=== PATIENT | male | born 1975 | race Two or more races ===

== ENCOUNTER 2022-01-16 19:41 | Inpatient (IN) | payer BC, SELFPAY ==
[2022-01-16] VITALS (11 sets, daily range): BP systolic 146–215; BP diastolic 89–117; PULSE 69–83; RESP 12–21; TEMP 36.2–37.1; O2SAT 99–100; BMI 27.6
--- NOTE | ~2022-01-16 | MR_ITS ---
MRI OF THE BRAIN WITHOUT IV CONTRAST INDICATION: ? STROKE POST TPA. Previous CT studies describes left-sided weakness. COMPARISON: CTA head and neck and head CT January 16, 2022 TECHNIQUE: Multiplanar multisequence MR imaging of the brain was obtained without IV contrast. FINDINGS: There is an acute infarct extending from the right velasquez radiata into the posterior right putamen. No mass effect and no hemorrhagic transformation. There is background moderate chronic microangiopathy. There is no hydrocephalus, extra-axial surface collection, or herniation. The major flow voids at the skull base are preserved. There is no intracranial hemorrhage on the gradient recalled echo acquisition. The midline structures are normal. The cerebellar tonsils are normally positioned. The cerebellum and brainstem are normal. The craniocervical junction is normal. Osseous marrow signal intensity is homogenous. The visualized soft tissues are unremarkable. MR/MR head/brain wo con IMPRESSION: - There is an acute infarct extending from the right velasquez radiata into the posterior right putamen. No mass effect and no hemorrhagic transformation. - There is background moderate chronic microangiopathy.
--- NOTE | ~2022-01-16 | CT_ITS ---
EXAMINATION: CT HEAD WITHOUT CONTRAST (STROKE PROTOCOL) CLINICAL INFORMATION: Stroke protocol. Left-sided weakness. COMPARISON: None TECHNIQUE: Contiguous axial imaging was performed from the skull base to vertex without intravenous administration of contrast. This CT examination was performed using dose optimization techniques as appropriate, variously including the following: *Automated exposure control *Adjustment of mA and/or kV according to patient size (this includes techniques or standardized protocols for targeted exams where dose is matched to indication/reason for exam; i.e. extremities or head) *Use of iterative reconstruction technique DLP: 727 mGy-cm FINDINGS: There is no intracranial hemorrhage, hematoma, or extra-axial fluid collection. Subtle hypodensity is seen in the left postcentral gyrus on axial image 21/3. However patient has a left-sided weakness and likely not related to this abnormality. The ventricles are normal in size. There is no hydrocephalus, edema, or mass effect. The child-white matter differentiation appears symmetric. There is no acute infarct or mass lesion. The calvarium appears intact. There is no pneumocephalus or orbital emphysema. The visualized sinuses and middle ears and mastoid air cells show no significant mucosal thickening. There are no air-fluid levels. CT/CT head for stroke IMPRESSION: No acute intracranial bleed or infarct. Nonspecific hypodensity in the left postcentral gyrus question artifact or ischemia. However patient has left-sided weakness and symptoms. This critical result was discussed with Dr. Sky at 8:07 PM. It was ascertained that the content and urgency of the report was understood at the time of direct communication.
--- NOTE | ~2022-01-16 | XR_ITS ---
EXAMINATION: XR CHEST CLINICAL INFORMATION: CVA COMPARISON: None TECHNIQUE: Frontal view of the chest was obtained. FINDINGS: The lungs are well expanded. There is no focal consolidation, edema, or effusion. No pneumothorax. The cardiomediastinal silhouette is within normal limits. No acute osseous abnormality. XR/XR chest 1V IMPRESSION: Clear lungs.
--- NOTE | ~2022-01-16 | CT_ITS ---
EXAMINATION: CTA OF THE HEAD AND NECK CLINICAL INFORMATION: Acute left-sided weakness. COMPARISON: Head CT from 01/16/2022. TECHNIQUE: Test bolus sequences followed by intravenous administration 70 mL of Omnipaque 350. Helical imaging was performed in the axial plane from the mediastinum to the skull vertex. Delayed postcontrast imaging of the head was also performed. The data was processed at the neurodiagnostic technologist's workstation for generation of MIP sequences. Three-dimensional volume rendered reformatted images were also generated at an offline 3-D workstation. Stenoses are assessed in accordance with NASCET criteria unless otherwise indicated. This CT examination was performed using dose optimization techniques as appropriate, variously including the following: *Automated exposure control *Adjustment of mA and/or kV according to patient size (this includes techniques or standardized protocols for targeted exams where dose is matched to indication/reason for exam; i.e. extremities or head) *Use of iterative reconstruction technique DLP: 1652 mGy-cm. FINDINGS: CTA neck: The imaged aortic arch and origins of the great vessels are patent. The common carotid arteries are patent with mild areas of atheromatous disease. The carotid bifurcations are normal. The cervical internal carotid arteries are relatively normal in caliber. The vertebral arteries opacify normally. Mild luminal irregularities noted in the V2 segments of the vertebral arteries. Left hilar and left pericarinal calcified adenopathy noted which may be due to prior granulomatous disease. The imaged portions of the lungs are clear. There is a small nodule versus cyst in the right thyroid lobe. There is mild asymmetric prominence along the tongue base on the left side and of the left oropharyngeal wall. The left nasopharyngeal soft tissues are also mildly asymmetric as compared to the right side. The oral cavity appears normal. The laryngeal structures are unremarkable. No pathologically enlarged cervical lymph nodes are visible. The parotid and submandibular glands appear normal. No acute osseous abnormality is seen. CTA head: There are mild stenoses in the intradural left vertebral artery. There are multifocal mild to moderate stenoses in the right vertebral artery; a focal severe stenosis is also visible distal to the PICA origin. A moderate stenosis is evident in the proximal basilar artery. There are mild stenoses elsewhere throughout the basilar artery. There are moderate to severe stenoses in both posterior cerebral arteries, proximally on the right side and more distally on the left side. There is a moderate stenosis in the supraclinoid left internal carotid artery. The right ICA is patent with mild stenoses. There are multifocal mild and moderate stenoses in the MCA and INDIGO vasculature, more so on the left side. The venous sinuses opacify normally. No abnormal enhancement intracranially. CT/CT angio head neck stroke IMPRESSION: Mild atheromatous disease in the cervical vasculature without significant stenosis or vessel occlusion. Mild to moderate stenoses in the intracranial right vertebral artery with a focal severe stenosis distal to the PICA origin. Moderate stenosis in the proximal basilar artery. Moderate to severe stenoses in the posterior cerebral arteries, particularly at the P1/P2 junction on the right side. Moderate stenosis in the supraclinoid left internal carotid artery. Multifocal mild to moderate stenoses in the MCA and INDIGO vasculature. Mild asymmetric soft tissue prominence along the tongue base on the left side and of the left pharyngeal wall; correlate with direct visual inspection in order to exclude an underlying lesion. No cervical adenopathy. Imaging findings reported to Dr. Gibbs at 9:06 PM on 01/16/2022.
--- NOTE | 2022-01-16 19:50 | ECG_ITS ---
Test Reason : stroke Blood Pressure : / mmHG Vent. Rate : 076 BPM Atrial Rate : 076 BPM P-R Int : 162 ms QRS Dur : 090 ms QT Int : 404 ms P-R-T Axes : 052 086 072 degrees QTc Int : 454 ms Normal sinus rhythm Normal ECG No previous ECGs available Referred By: Jose Daniel Leonard Electronically Signed By:RHETT UP MD
[2022-01-16 20:00] LABS: MANUAL DIFF FLAG NO
[2022-01-16 20:05] LABS: Stroke Lab Use COMPLETE
[2022-01-16 20:08] LABS: Prothrombin Time 11.8 SEC (9.9-13.0)
[2022-01-16 20:10] LABS: Basophils Percent Auto 0.4 % (0-2); Eosinophils Absolute Auto 0.2 X10*3/uL (0.0-0.4); Eosinophils Percent Auto 2.1 % (0-4); Hematocrit 40.3 % (42.0-52.0); Hemoglobin 13.9 g/dl (14.0-18.0); Imm Gran Abs Auto 0.03 X10*3/uL (0.00-0.03); Imm Gran Pct Auto 0.4 % (0.0-0.4); Lymphocytes Absolute Auto 2.2 X10*3/uL (1.2-4.9); Lymphocytes Percent Auto 28.2 % (20-40); Mean Corpuscular HGB Conc 34.5 g/dl (31.0-36.0); Mean Corpuscular Hemoglobin 29.3 pg (27.0-33.0); Mean Platelet Volume 10.4 fL (9.4-12.4); Monocytes Absolute Auto 0.6 X10*3/uL (0.1-1.2); Monocytes Percent Auto 7.6 % (2-11); Neutrophils Absolute Auto 4.7 x10*3/uL (2.0-8.3); Neutrophils Percent Auto 61.3 % (45-73); Platelet Count 289 X10*3/uL (160-400); Red Blood Count 4.74 X10*6/uL (4.60-5.80); Red Cell Distribution Width 13.2 % (11.0-16.0); White Blood Count 7.6 X10*3/uL (4.8-10.8)
[2022-01-16] MEDS: Labetalol HCL 100 MG/20 ML VIAL 20 MG IVPUSH ×2 (20:12→20:26)
--- NOTE | 2022-01-16 20:13 | ED_ITS ---
HPI - Neuro Symptoms/Deficit General Chief Complaint: Stroke Stated Complaint: R side droopy, unable to speak Time Seen by Provider: 01/16/22 19:48 Source: patient Mode of arrival: ambulatory Limitations: no limitations History of Present Illness HPI Narrative: Patient history of hypertension cocaine use not taking any medication for hypertension lasting cocaine was 48 hours ago around 18:00 while at work patient noticed left arm numbness unsteady gait slurred speech and left-sided facial droop no headache on arrival patient's blood pressure was 206/112 no nausea no vomiting no chest pain or palpitations no history of similar episode in the past no vision loss Related Data Home Medications Medication Instructions Recorded Confirmed No Known Home Meds 01/16/22 01/16/22 Allergies Allergy/AdvReac Type Severity Reaction Status Date / Time No Known Allergies Allergy Verified 01/16/22 19:59 Review of Systems Review of Systems: Yes all other systems are reviewed and are negative [facility] Social History Social History Patient Tobacco Use Status: Current someday Tobacco user Use of substances other than those prescribed or required for medical reasons: Yes Substance Use Type: Crack/Cocaine Substance Use Frequency: Daily Advance Directives: No Advance Directives Information Provided: No Physical Exam Vital Signs: Vital Signs: Last Vital Signs Temp 98.7 F 01/16/22 23:27 Pulse 66 01/17/22 00:00 Resp 21 H 01/17/22 00:00 BP 169/100 H 01/17/22 00:00 Pulse Ox 99 01/16/22 23:27 BMI result Body Mass Index 27.6 Appearance: Alert. Oriented X3. No acute distress. Eyes: PERRLA, No Nystagmus ENT: Pharynx normal. Oral Mucosa moist Neck: Normal inspection. Neck supple. CVS: Normal heart rate and rhythm. Pulses normal. Respiratory: No respiratory distress. Equal air entry bilateral, no wheezing/rales/rhonchi Abdomen: Soft and nontender. Bowel sounds are present, no mass palpable, no CVA tenderness Skin: Skin warm and dry. Normal skin color. Normal skin turgor. Extremities: No lower extremity edema. No calf tenderness Neuro: Oriented X 3.-4/5 strength in left upper extremity and left lower extremities left facial droop + dysarthria+ No sensory deficit.No cerebellar signs , Course Reevaluation(s) Reevaluation #1: Patient is status post labetalol and CT scan negative for any acute bleed blood pressure still elevated to 206/[address] Ware bring blood pressure down and give tPA if NIHSS score is above 4 Time: 20:06 Reevaluation #2: Patient status post 20 mg of labetalol IV blood pressure still elevated to 197/101 patient said he used cocaine 2 days ago none today will give another dos e of labetalol 20 mg patient does have history of hypertension and not on any medications Time: 20:23 Reevaluation #3: bp 168/86 ok for TPA pt still with same deficit Time: 20:26 MDM - Neuro Symptoms/Deficit MDM Narrative Medical decision making narrative: 20:30 Patient with history of hypertension untreated history of cocaine use last use was 48 hours ago came to the ER for acute left-sided weakness started at 18:00. Patient blood pressure was elevated on arrival was given labetalol [address] scan head was negative case discussed Dr. Ware advised to give tPA when SBP< 185 and NIHHS score more than 4, patient stayed with same weakness blood pressure improved TPA started 21;30 patient is status post tPA slight speech improvement still has left arm and left leg weakness. Blood pressure 161/92 admit to ICU Lab Data Attestation: I reviewed the patient's lab results. Result diagrams: 01/16/22 19:50 01/16/22 19:50 Labs: Lab Results 01/16/22 01/16/22 01/16/22 Range/Units 19:50 19:50 19:50 WBC 7.6 (4.8-10.8) X10*3/uL RBC 4.74 (4.60-5.80) X10*6/uL Hgb 13.9 L (14.0-18.0) g/dl Hct 40.3 L (42.0-52.0) % MCV 85.0 (80.0-98.0) fL MCH 29.3 (27.0-33.0) pg MCHC 34.5 (31.0-36.0) g/dl RDW 13.2 (11.0-16.0) % Plt Count 289 (160-400) X10*3/uL MPV 10.4 (9.4-12.4) fL Immature Gran % (Auto) 0.4 (0.0-0.4) % Neut % (Auto) 61.3 (45-73) % Lymph % (Auto) 28.2 (20-40) % Rusk % (Auto) 7.6 (2-11) % Eos % (Auto) 2.1 (0-4) % Baso % (Auto) 0.4 (0-2) % Lymph # (Auto) 2.2 (1.2-4.9) X10*3/uL Rusk # (Auto) 0.6 (0.1-1.2) X10*3/uL Eos # (Auto) 0.2 (0.0-0.4) X10*3/uL Baso # (Auto) 0.0 (0.0-0.2) X10*3/uL Abs Immat Gran (auto) 0.03 (0.00-0.03) X10*3/uL Absolute Neuts (auto) 4.7 (2.0-8.3) x10*3/uL Absolute Nucleated RBC 0.000 (0.0-0.012) X10*3/uL Nucleated RBC % (auto) 0.0 (0.0-0.2) /100WBC PT 11.8 (9.9-13.0) SEC INR 1.0 (0.9-1.1) Sodium 133 L (135-145) mmol/L Potassium 4.2 (3.3-5.1) mmol/L Chloride 98 (96-108) mmol/L Carbon Dioxide 27 (22-29) mmol/L Anion Gap 12 (12-20) BUN 9 (9-16) mg/dL Creatinine 1.14 (0.5-1.4) mg/dL Estim Creat Clear Calc 84.4 Estimated GFR > 60 POC Glucose (60-115) mg/dL Random Glucose 320 H (60-115) mg/dL Calcium 9.6 (8.4-10.2) mg/dL Troponin I High Sens (<3.5-35.0) ng/L COVID-19 (JON) (Negative) COVID-19 Clin Com 01/16/22 01/16/22 01/16/22 Range/Units 19:50 19:50 20:13 WBC (4.8-10.8) X10*3/uL RBC (4.60-5.80) X10*6/uL Hgb (14.0-18.0) g/dl Hct (42.0-52.0) % MCV (80.0-98.0) fL MCH (27.0-33.0) pg MCHC (31.0-36.0) g/dl RDW (11.0-16.0) % Plt Count (160-400) X10*3/uL MPV (9.4-12.4) fL Immature Gran % (Auto) (0.0-0.4) % Neut % (Auto) (45-73) % Lymph % (Auto) (20-40) % Rusk % (Auto) (2-11) % Eos % (Auto) (0-4) % Baso % (Auto) (0-2) % Lymph # (Auto) (1.2-4.9) X10*3/uL Rusk # (Auto) (0.1-1.2) X10*3/uL Eos # (Auto) (0.0-0.4) X10*3/uL Baso # (Auto) (0.0-0.2) X10*3/uL Abs Immat Gran (auto) (0.00-0.03) X10*3/uL Absolute Neuts (auto) (2.0-8.3) x10*3/uL Absolute Nucleated RBC (0.0-0.012) X10*3/uL Nucleated RBC % (auto) (0.0-0.2) /100WBC PT (9.9-13.0) SEC INR (0.9-1.1) Sodium (135-145) mmol/L Potassium (3.3-5.1) mmol/L Chloride (96-108) mmol/L Carbon Dioxide (22-29) mmol/L Anion Gap (12-20) BUN (9-16) mg/dL Creatinine (0.5-1.4) mg/dL Estim Creat Clear Calc Estimated GFR POC Glucose 292 H (60-115) mg/dL Random Glucose (60-115) mg/dL Calcium (8.4-10.2) mg/dL Troponin I High Sens 4.6 (<3.5-35.0) ng/L COVID-19 (JON) Negative (Negative) COVID-19 Clin Com See Note ECG Data Attestation: I personally reviewed and interpreted this ECG as follows: Interpretation: Normal sinus rhythm heart rate 76 beats per minute normal intervals normal axis no acute ST-T changes no acute ischemia NIH Stroke Scale Internal: Initial- Upon Arrival Time: 19:50 Level of Consciousness: Alert Level of Consciousness Questions: Answers both questions correctly Level of Consciousness Commands: Performs both tasks correctly Best Gaze: Normal Visual: No visual loss Facial Palsy: Partial paralysis Motor Arm (Right): No drift Motor Arm (Left): Drift Motor Leg (Right): No drift Motor Leg (Left): Drift Limb Ataxia: Absent Sensory: Normal Best Language: No aphasia Dysarthia: Mild to moderate dysarthria Extinction and Inattention: No abnormality Score: 5 Critical Care Time Critical Care Time Critical Care Time: Yes Total Critical Care Time: 55 Attestation: I spent 55 minutes of critical care, with interventions, assessments, speaking to patient, consultants, and family. Discharge Plan Discharge Clinical Impression: Cerebrovascular accident, Hypertension, Diabetes mellitus Patient Disposition: Admitted As Inpatient Interventions: Admission Worksheet (ED) Last Done: 01/17/22 00:16 Discharge Date/Time: 01/17/22 00:17
[2022-01-16 20:17] LABS: Anion Gap 12 (12-20); Blood Urea Nitrogen 9 mg/dL (9-16); Calcium 9.6 mg/dL (8.4-10.2); Carbon Dioxide 27 mmol/L (22-29); Chloride 98 mmol/L (96-108); Creatinine Clr Calc Pharmacy 84.4; Estimated Glomerular Filt Rate > 60; Glucose Random 320 mg/dL (60-115); Potassium 4.2 mmol/L (3.3-5.1); Sodium 133 mmol/L (135-145)
[2022-01-16 20:17] LABS: Glucose, Whole Blood 292 mg/dL (60-115)
[2022-01-16 20:22] LABS: Troponin-I High Sensitivity 4.6 ng/L (<3.5-35.0)
[2022-01-16] MEDS: iohexoL 350 MG/ML 100 ML INFUS..BTL IV (20:27)
--- NOTE | 2022-01-16 20:38 | PC.NURSE ---
This RN checked PT BP prior to CT scan, found to be 215/117, provider ordered 20 mg og labetolol which was given. Prior to CTA PT's BP was still elevated at 187/101. PT return from CT and received another 20 mg of labetolol per provider's order. As alteplase was being prepared a third BP was obtained (167/99) and then PT received med. From Alteplase solution vile, 19 mL was wasted, PT received 8.1 mL bolus over one minute, and then one hour infusion of 72.9 mL was started. PT is currently sitting comfortably in bed, denies any pain, but still complaining of difficulty with speech.
[2022-01-16 21:07] LABS: COVID-19 Test Negative (Negative); IDNOW Serial# 16C4AD1C
--- NOTE | 2022-01-16 21:18 | PC.NURSE ---
Alteplase infusion still has 20 minutes remaining. PT reported that he is feeling a lot better and speech has improved .
--- NOTE | 2022-01-16 21:36 | PC.NURSE ---
Alteplase infusion completed. Provider informed. PT is resting and in no apparent distress at this time.
--- NOTE | 2022-01-16 21:56 | PM.CCHP ---
History of Present Illness Date of Service: 01/17/22 Attending physician on admission: Mayo Arreguin Chief Complaint: Ischemic Stroke post tPA HPI: ?38-year-old gentleman with history of hypertension not on meds; presented to the ER reporting his R face was droopy and was unable to speak. It is known that he has not taken his blood pressure medications and had been using cocaine, last being 2 days ago. In the ER the patient had right facial droop and dysarthria. Reportedly he had left arm and left leg weakness 4/5 in comparison to 5/5 on the right. NIH score of [address] showing Nonspecific hypodensity in the left postcentral gyrus question artifact or ischemia. However patient has left-sided weakness and symptoms. ?At time of arrival the patient's blood pressure was quite elevated at its highest 215/117, patient was given labetalol 20 mg IV. ?Neurology was consulted and decision to administer tPA was made.? Patient receive tPA and the symptoms improved dramatically within a couple hours. currently he is able to speak in full sentences, feels significantly better than before and does not feel like his right face is twisted anymore , he feels no weakness of arms or legs. Patient denies vissual changes, headache, Chest pain, palpitations, shortness of breath, arm or jaw pain, arm or jaw weakness, abdominal pain, nausea, vomiting, diarrhea, leg edema, urinary symptoms. ROS:? As above otherwise negative. Past Medical History:? As above Past Surgical History: none Family history:? Noncontributory Social History:? Lives home, uses Cocaine, no Etoh. Denies tobacco CODE STATUS: FULL CODE Allergies: NKDA Home Medications: See Med Rec PHYSICAL EXAM: VS: 146/89, heart rate 66, respirations 21, O2 sat 99% room air, temperature 98.7 degrees. General:? Alert oriented x3 no acute distress. Speaking slowly but in full sentences, there is no dysarthria. Skin:? Intact, no lesions, edema, erythema, clubbing or cyanosis.? No ulcers. HEENT:? Head is normocephalic, atraumatic, pupils equal round reactive to light accommodation bilaterally.? Extraocular movements appear intact.? Buccal mucosa is moist, tongue protrudes midline with slight tip deviation towards the left.? There is no facial droop. ?Neck is supple without lymphadenopathy. Cardiac:? Clear S1-S2, no murmurs rubs or gallops. Pulmonary:? Clear to auscultation, no wheezes, rales or rhonchi. Abdomen:? Protuberant, positive bowel sounds in all 4 quadrants.? Soft, nontender, no rebound or guarding.? Musculoskeletal:? Moving all 4 extremities upon request a major joints, there is no crepitus or tenderness.? The strength is 5/5 bilaterally and throughout all 4 extremities.? There is no leg edema , no calf tenderness , no leg asymmetry.? Gait not assessed at this point. Neurologic:? As above, cranial nerves 2-12 are grossly intact.? No focal deficits noted. ?Alternating movements are intact with [id number] and [id number] bilaterally. Vascular:? 2+ pulses upper and lower extremities distally. SIGNIFICANT LABORATORY DATA: ?As above REVIEW OF IMAGES: CXR Clear Lungs HEAD CT IMPRESSION: No acute intracranial bleed or infarct. ? Nonspecific hypodensity in the left postcentral gyrus question artifact or ischemia. However patient has left-sided weakness and symptoms. ? This critical result was discussed with Dr. Sky? at 8:07 PM. It was ascertained that the content and urgency of the report was understood at the time of direct communication. HEAC and NECK CTA IMPRESSION: ? Mild atheromatous disease in the cervical vasculature without significant stenosis or vessel occlusion. ? Mild to moderate stenoses in the intracranial right vertebral artery with a focal severe stenosis distal to the PICA origin. Moderate stenosis in the proximal basilar artery. ? Moderate to severe stenoses in the posterior cerebral arteries, particularly at the P1/P2 junction on the right side. ? Moderate stenosis in the supraclinoid left internal carotid artery. ? Multifocal mild to moderate stenoses in the MCA and INDIGO vasculature. ? Mild asymmetric soft tissue prominence along the tongue base on the left side and of the left pharyngeal wall; correlate with direct visual inspection in order to exclude an underlying lesion. No cervical adenopathy. ? EKG REVIEW: ?Normal sinus rhythm ventricular rate 76 beats per minute.? No ST elevations or depressions.? QTC 454.? No comparison available. ASSESSMENT AND PLAN: 1. Acute Ischemic Infarct 2. HTN Emergency ? encephalopathy 3. Suspected New onset Diabetes 4. Hypovolemic Hyponatremia 5. Cocaine Abuse 6. Medical Non Compliance Patient will be admitted to ICU for post tPA protocol and management, will keep a close eye on his blood pressure, no aspirin or related products for 24 hours, swallow eval, lipid profile in the morning and maximize statin, will order an echo and MRI of the head.? Repeat lab work in the morning, order hemoglobin A1c level, likely will need to be started on antihypertensive agents, and but no for now to avoid hypoperfusion.? Who new speech and occupational therapy evaluation although I do not suspect that he will have any deficits anymore for his exam is almost completely normal at this point. GI PROPHYLAXIS: IV PPI DVT PROPHYLAXIS: Pneumatic Stocks ? Critical care time used for critical evaluation of this patient, diagnosis, treatment and coordination of care, review her records and documentation TOTAL CRITICAL CARE TIME 90 MIN . Patient's care was discussed in detail with Dr. Arreguin.? He is aware of all the above as well as the plan of care for this patient. [facility] Social History Social History Household Members: Spouse Housing: Homeless Do you presently have visiting nurse or other home services: No Patient Tobacco Use Status: Former Tobacco user Tobacco use type: Cigarette Smoked in Last 30 Days: Yes Patient Interested in Nicotine Replacement: No Patient Given Instructions on How to Stop Smoking: No Second Hand Smoke Exposure: No Use of substances other than those prescribed or required for medical reasons: Yes Substance Use Type: Crack/Cocaine Substance Use Frequency: Occasionally Last Used Substance: Days (ago) Currently Displaying Signs/Symptoms of Drug Intoxication Withdrawal: No Any prior treatment program specific to substance use: No Have you been hit, kicked, punched, or otherwise hurt by someone within the past year? If so, by whom?: No Do you feel safe in your current relationship?: Yes Is there a partner from a previous relationship who is making you feel unsafe now?: No Are you made to feel afraid or neglected: No Advance Directives: No Advance Directives Information Provided: No Advance Directives on File: No Do you have thoughts of harming others: None Do you have a plan to hurt others: No Plan Recently lost weight without trying: Yes How much weight loss: 2-13 pounds Eating poorly because of decreased appetite: No Nutrition screen score: 3 Nutrition Risks: No Nutritional Risk Poor oral hygiene: No service: No Current occupational status: employed Meds Allergies Allergy/AdvReac Type Severity Reaction Status Date / Time No Known Allergies Allergy Verified 01/16/22 19:59 Active Medications: Current Medications Dextrose (Dextrose 50 % 25 Gm/50 Ml Syringe) 25 gm IVPUSH Q15M PRN; Protocol PRN Reason: per Hypoglycemia Standing Ord. Glucose (Glucose Gel 15 Gm Gel..Gram.) 15 gm PO Q15M PRN; Protocol PRN Reason: per Hypoglycemia Standing Ord. Insulin Human Lispro (Insulin Lispro 100 Unit/Ml 3 Ml Vial) 0 unit SUBCUT QID [facility]; Protocol Pantoprazole Sodium (Pantoprazole Sodium 40 Mg/10 Ml Vial) 40 mg IVPUSH ONCE ONE Stop: 01/16/22 21:53 Sodium Chloride (0.9 % Sodium Chloride Flush 3 Ml Syringe) 3 [facility] Home Medications Medication Instructions Recorded Confirmed Last Taken Type No Known Home Meds 01/17/22 01/17/22 Unknown History Physical Exam Vital Signs: Vital Signs: Last Vital Signs Temp 97.1 F 01/16/22 19:57 Pulse 72 01/16/22 21:53 Resp 18 01/16/22 21:53 BP 152/110 H 01/16/22 21:53 Pulse Ox 100 01/16/22 21:53 BMI result Body Mass Index 27.6 Results Labs CBC and Chem 7: 01/17/22 05:04 01/17/22 05:04 Labs: Laboratory Results - last 24 hr 01/16/22 01/16/22 01/16/22 19:50 19:50 19:50 MCV 85.0 MCH 29.3 MCHC 34.5 RDW 13.2 Plt Count 289 MPV 10.4 Immature Gran % (Auto) 0.4 Neut % (Auto) 61.3 Lymph % (Auto) 28.2 Harlan % (Auto) 7.6 Eos % (Auto) 2.1 Baso % (Auto) 0.4 Lymph # (Auto) 2.2 Harlan # (Auto) 0.6 Eos # (Auto) 0.2 Baso # (Auto) 0.0 Abs Immat Gran (auto) 0.03 Absolute Neuts (auto) 4.7 Absolute Nucleated RBC 0.000 Nucleated RBC % (auto) 0.0 PT 11.8 INR 1.0 Anion Gap 12 Estim Creat Clear Calc 84.4 Estimated GFR > 60 POC Glucose Random Glucose 320 H Calcium 9.6 Troponin I High Sens COVID-19 (JON) COVID-19 Clin Com 01/16/22 01/16/22 01/16/22 19:50 19:50 20:13 MCV MCH MCHC RDW Plt Count MPV Immature Gran % (Auto) Neut % (Auto) Lymph % (Auto) Harlan % (Auto) Eos % (Auto) Baso % (Auto) Lymph # (Auto) Harlan # (Auto) Eos # (Auto) Baso # (Auto) Abs Immat Gran (auto) Absolute Neuts (auto) Absolute Nucleated RBC Nucleated RBC % (auto) PT INR Anion Gap Estim Creat Clear Calc Estimated GFR POC Glucose 292 H Random Glucose Calcium Troponin I High Sens 4.6 COVID-19 (JON) Negative COVID-19 Clin Com See Note Imaging Radiologist's Impressions: Impressions Head CT 01/16/22 19:58 IMPRESSION: No acute intracranial bleed or infarct. Nonspecific hypodensity in the left postcentral gyrus question artifact or ischemia. However patient has left-sided weakness and symptoms. This critical result was discussed with Dr. Sky at 8:07 PM. It was ascertained that the content and urgency of the report was understood at the time of direct communication. Head/Neck CTA 01/16/22 20:21 IMPRESSION: Mild atheromatous disease in the cervical vasculature without significant stenosis or vessel occlusion. Mild to moderate stenoses in the intracranial right vertebral artery with a focal severe stenosis distal to the PICA origin. Moderate stenosis in the proximal basilar artery. Moderate to severe stenoses in the posterior cerebral arteries, particularly at the P1/P2 junction on the right side. Moderate stenosis in the supraclinoid left internal carotid artery. Multifocal mild to moderate stenoses in the MCA and INDIGO vasculature. Mild asymmetric soft tissue prominence along the tongue base on the left side and of the left pharyngeal wall; correlate with direct visual inspection in order to exclude an underlying lesion. No cervical adenopathy. Imaging findings reported to Dr. Gibbs at 9:06 PM on 01/16/2022.
[2022-01-16 22:09] LABS: Glucose, Whole Blood 253 mg/dL (60-115)
[2022-01-16] MEDS: Insulin Lispro 100 UNIT/ML 3 ML VIAL SUBCUT (22:20)
[2022-01-16] MEDS: Pantoprazole Sodium 40 MG/10 ML VIAL IVPUSH (22:21)
--- NOTE | 2022-01-16 23:35 | PC.NURSE ---
Took over care from QUINTEN Flores at 11:15pm. Neuro intact, pt able to speak in full sentence and answer question appropriately. pt denies any double vision or headache at this time. Swallow evaluation completed.
--- NOTE | 2022-01-16 23:42 | PC.NURSE ---
pt able to swallow fluid fine with no distress.
--- NOTE | 2022-01-16 23:58 | PC.NURSE ---
PT stated that he takes no at home meds.
[2022-01-17] VITALS (19 sets, daily range): BP systolic 135–176; BP diastolic 76–100; PULSE 62–79; RESP 12–21; TEMP 36.1–36.8; O2SAT 96–100; BMI 27.6
[2022-01-17] MEDS: 0.9 % Sodium Chloride Flush 3 ML SYRINGE IVFLUSH ×4 (02:56→21:37)
[2022-01-17 05:35] LABS: MANUAL DIFF FLAG NO
[2022-01-17 05:38] LABS: Basophils Percent Auto 0.4 % (0-2); Eosinophils Absolute Auto 0.2 X10*3/uL (0.0-0.4); Eosinophils Percent Auto 2.5 % (0-4); Hematocrit 37.2 % (42.0-52.0); Hemoglobin 12.5 g/dl (14.0-18.0); Imm Gran Abs Auto 0.03 X10*3/uL (0.00-0.03); Imm Gran Pct Auto 0.4 % (0.0-0.4); Lymphocytes Absolute Auto 2.7 X10*3/uL (1.2-4.9); Lymphocytes Percent Auto 34.8 % (20-40); Mean Corpuscular HGB Conc 33.6 g/dl (31.0-36.0); Mean Corpuscular Hemoglobin 28.1 pg (27.0-33.0); Mean Corpuscular Volume 83.6 fL (80.0-98.0); Mean Platelet Volume 10.4 fL (9.4-12.4); Monocytes Absolute Auto 0.6 X10*3/uL (0.1-1.2); Monocytes Percent Auto 7.3 % (2-11); Neutrophils Absolute Auto 4.2 x10*3/uL (2.0-8.3); Neutrophils Percent Auto 54.6 % (45-73); Platelet Count 262 X10*3/uL (160-400); Red Blood Count 4.45 X10*6/uL (4.60-5.80); Red Cell Distribution Width 13.2 % (11.0-16.0); White Blood Count 7.6 X10*3/uL (4.8-10.8)
[2022-01-17 06:07] LABS: Anion Gap 15 (12-20); Blood Urea Nitrogen 8 mg/dL (9-16); Calcium 8.8 mg/dL (8.4-10.2); Carbon Dioxide 23 mmol/L (22-29); Chloride 102 mmol/L (96-108); Cholesterol 246 mg/dL; Creatinine Clr Calc Pharmacy 92.5; Estimated Glomerular Filt Rate > 60; Glucose Random 288 mg/dL (60-115); HDL Cholesterol 35 mg/dL; LDL Cholesterol Calculated 162 mg/dl; Potassium 3.5 mmol/L (3.3-5.1); Sodium 136 mmol/L (135-145); Triglycerides 247 mg/dL
[2022-01-17 07:18] LABS: Prothrombin Time Whole Bld POC 11.9 sec (11.1-13.5)
[2022-01-17 07:21] LABS: Glucose, Whole Blood 250 mg/dL (60-115)
[2022-01-17] MEDS: Insulin Lispro 100 UNIT/ML 3 ML VIAL SUBCUT ×5 (07:45→21:37)
[2022-01-17 07:56] LABS: Estimated Average Glucose 289 mg/dL; Hemoglobin A1c % 11.7 %
--- NOTE | 2022-01-17 08:00 | ECG_ITS ---
Test Reason : stroke Blood Pressure : / mmHG Vent. Rate : 060 BPM Atrial Rate : 060 BPM P-R Int : 168 ms QRS Dur : 100 ms QT Int : 388 ms P-R-T Axes : 049 090 113 degrees QTc Int : 388 ms Normal sinus rhythm Rightward axis Nonspecific T wave abnormality Abnormal ECG When compared with ECG of 16-JAN-2022 19:59, Nonspecific T wave abnormality now evident in Lateral leads QT has shortened Referred By: Esdras Pham Electronically Signed By:RHETT UP MD
[2022-01-17 08:20] LABS: Amphetamine Screen Urine Not Detected (Not Detect); Barbiturates, Urine Not Detected (Not Detect); Benzodiazepines Screen Urine Not Detected (Not Detect); Cannabinoid Screen Urine Not Detected (Not Detect); Cocaine Screen Urine POSITIVE (Not Detect); Fentanyl, urine Not Detected (Not Detect); Opiate Screen Urine Not Detected (Not Detect); Phencyclidine Screen Urine Not Detected (Not Detect)
--- NOTE | 2022-01-17 09:57 | MHC.STROKE ---
Addendum entered by Damon Ford RN 01/18/22 10:51: MET WITH PATIENT AND . I PROVIDED ADDITIONAL STROKE EDUCATION AND DISCHARGE INSTRUCTIONS. HE WILL NEED TO FOLLOW UP WITH DR KIMBLE WITHIN A MONTH - CALL [phone] TO MAKE AN APPOINTMENT. DR KIMBLE WANTS TO REPEAT THE CTA HEAD/NECK TO COMPARE TO INITIAL SCAN. HE SHOULD REMAIN OUT OF WORK FOR 1-2 WEEKS. HE HAS A BLOOD PRESSURE MACHINE AND I GAVE HIM TRACKING GUIDE AND INSTRUCTIONS ON HOW TO TAKE HIS BLOOD PRESSURE. HIS GOAL IS 130/70. I REINFORCED SIGNS AND SYMPTOMS OF STROKE, SUDDEN ONSET DIZZINESS, BALANCE, WEAKNESS ON ONE SIDE, SPEECH ISSUES. I STRESSED THE DIABETIC DIET AND I CONTACTED THE DRILLER AND BROACHER. WE DISCUSSED THE NEED FOR INSULIN AND HE IS WILLING TO LEARN. I ALSO STRESSED THE IMPORTANCE OF ONGOING CARE WITH HIS PRIMARY CARE PHYSICIAN. I ALSO SUGGESTED THE [facility] [phone]. IF HE NEEDS HELP OR SUPPORT WITH ANY WITHDRAWAL ISSUES. HEALTH SAFETY AND ENVIRONMENT MANAGER - DAMON FORD RN [phone] Addendum entered by Damon Ford RN 01/17/22 14:08: I MET WITH DR. HAYES TO DISCUSS THE PATIENTS NEEDS. WE DISCUSSED A CARE TEAM CONSULT FOR HIS COCAINE USE AND + DRUG SCREEN. HE ENTERED A CARE TEAM CONSULT. I DID FOLLOW WITH WITH ANDRIA MESSINA AND SHE IS NOTIFYING HER STAFF TO SEE HIM. I MET WITH THE PATIENT, HIS , AND NIECE. I DISCUSSED HIS DIAGNOSIS RIGHT DEMARCO RADIATA ISCHEMIC STROKE, WE REVIEWED THE MRI AND THE LOCATION AND CORRESPONDING SYMPTOMS ASSOCIATED WITH A STROKE IN THIS LOCATION. WE ALSO DISCUSSED HIS CTA AND THE STENOSIS. I SPENT TIME DISCUSSING HIS INDIVIDUAL RISK FACTORS WHICH INCLUDE: HTN, DIABETES, HIGH CHOLESTEROL, SMOKING, DRUG USE (COCAINE), HIS DIET AND HIS HIGH SUGAR INTAKE (HE DRINKS AT LEAST 1 MONSTER BEVERAGE DAILY. HE ADMITS TO COCAINE USE AND I DID EXPLAIN THAT A CARE TEAM COUNSELOR WOULD BE BY TO SEE HIM. HE ALSO ADMITS TO NOT SEEING ANY DOCTOR AND HE DOES NOT HAVE A PCP. HE WILL NEED ASSISTANCE WITH THIS. THEY ALL UNDERSTAND HOW IMPORTANT IT IS TO CONTROL THESE RISK FACTORS AND WHY. HIS AND NIECE ARE VERY MUCH IN FAVOR OF THIS PLAN AND WILL ALSO HELP HIM. HE WILL NEED ONGOING SUPPORT TO MANAGE ALL OF THESE RISK FACTORS. HIS AIC 11.7 AND I DID EXPLAIN HOW HIGH THIS WAS AND HE WILL NEED DIET AND MEDICATION WELL LAB MONITORING FOR HIS NEWLY DIAGNOSED DIABETES. HIS TOTAL CHOL IS 246, TRIGLYCERIDES 247, HDL 35 AND LDL 162. I EXPLAINED THAT HE WILL BE STARTED ON A STATIN AND WHY. WE DISCUSSED THE SIGN AND SYMPTOMS OF STROKE AND WHAT TO DO IF ANOTHER STROKE HAPPENS AGAIN. THEY UNDERSTANDS HE IS HIGH RISK FOR ANOTHER STROKE. I EXPLAINED THAT HE WILL START ON AN ASPIRIN 81MG DAILY AND WHY. I ALSO EXPLAINED HOW THE COCAINE AFFECTS THE BLOOD VESSELS AND IF HE NEEDS ANY MEDICATION FOR ANY WITHDRAWL SYMPTOMS HE SHOULD NOTIFY THE NURSE. HE DOES ADMIT SMOKING 1-2 CIGARETTES EVERY FEW DAYS. I DID EXPLAIN HOW NICOTINE AFFECTS THE BLOOD VESSELS AND HE AGREES TO QUIT.I REVIEWED ALL OF THIS INFORMATION WITH THE RN DIPAK. I WILL CONTINUE TO FOLLOW. Original Note: 01/16/221940 PATIENT WALKED IN C/O LEFT SIDED WEAKNESS, DROOP AND DYSARTHRIA ONSET 1800. EXAMINED BY MD, STROKE PROTOCOL ACTIVATED. DIRECT TO CT AND CTA, NO BLEED NO LVO (LARGE VESSEL OCCLUSION) BUT RIGHT MCA STENOSIS NOTED IN RADIOLOGY REPORT. HE WAS VERY HYPERTENSIVE BP 206/112 AND REQUIRED IV LABETOLOL. CASE DISCUSSED WITH DR KIMBLE, + FOR COCAINE (?48 HRS EARLIER). NIHSS = 5, LEFT DROOP, LA,LL DRIFT AND DYSARTHRIA. TPA-ALTEPLASE GIVEN AT 2030, [id number] = 49 MINUTES (OVER THE 30 MIN AND 45 MIN BENCHMARK DUE TO HTN AND NEED TO LOWER HIS BP PRIOR TO TPA-ALTEPLASE). FREQUENT VITAL AND NEURO'S MONITORED. IMPROVEMENT DOCUMENTED [id number], PASSED SWALLOW SCREEN PRIOR TO ANY PO, MRI SCHEDULED THIS MORNING AT 1000. SEEN BY PT AND HE IS BACK TO BASELINE. AMBULATORY THEREFORE HE MEETS VTE PROPHYLAXIS. I WILL PROVIDE STROKE EDUCATION AFTER HIS MRI. HE WILL NEED A CARE TEAM CONSULT DUE TO +COCAINE USE. I WILL CONTINUE TO FOLLOW.
--- NOTE | 2022-01-17 10:07 | PHA.MEDREC ---
Pharmacy Consult ? Medication Reconciliation Pharmacy has completed the medication reconciliation.Confirmed at rounds patient is not taking any medications.
--- NOTE | 2022-01-17 10:20 | PM.NEUROCN ---
History of Present Illness Data of Consult Service Date: 01/17/22 Primary Care Provider: Unknown Physician HPI Reason for consult: Stroke 46 years old man with underlying hypertension for which she was not taking and difficulty taking venous tPA for suspected ischemic infarction of brain. This morning he was doing much better with resolution of symptoms and no new symptoms. Review of Systems Review of Systems: No recent cold or flu-like illness. PMFSH Social History Social History Household Members: Spouse Housing: Homeless Do you presently have visiting nurse or other home services: No Patient Tobacco Use Status: Former Tobacco user Tobacco use type: Cigarette Smoked in Last 30 Days: Yes Patient Interested in Nicotine Replacement: No Patient Given Instructions on How to Stop Smoking: No Second Hand Smoke Exposure: No Use of substances other than those prescribed or required for medical reasons: Yes Substance Use Type: Crack/Cocaine Substance Use Frequency: Occasionally Last Used Substance: Days (ago) Currently Displaying Signs/Symptoms of Drug Intoxication Withdrawal: No Any prior treatment program specific to substance use: No Have you been hit, kicked, punched, or otherwise hurt by someone within the past year? If so, by whom?: No Do you feel safe in your current relationship?: Yes Is there a partner from a previous relationship who is making you feel unsafe now?: No Are you made to feel afraid or neglected: No Advance Directives: No Advance Directives Information Provided: No Advance Directives on File: No Do you have thoughts of harming others: None Do you have a plan to hurt others: No Plan Recently lost weight without trying: Yes How much weight loss: 2-13 pounds Eating poorly because of decreased appetite: No Nutrition screen score: 3 Nutrition Risks: No Nutritional Risk Poor oral hygiene: No Meds Allergies Allergy/AdvReac Type Severity Reaction Status Date / Time No Known Allergies Allergy Verified 01/16/22 19:59 Active Medications: Current Medications Dextrose (Dextrose 50 % 25 Gm/50 Ml Syringe) 25 gm IVPUSH Q15M PRN; Protocol PRN Reason: per Hypoglycemia Standing Ord. Glucose (Glucose Gel 15 Gm Gel..Gram.) 15 gm PO Q15M PRN; Protocol PRN Reason: per Hypoglycemia Standing Ord. Insulin Human Lispro (Insulin Lispro 100 Unit/Ml 3 Ml Vial) 0 unit SUBCUT QID [facility]; Protocol Last Admin: 01/17/22 07:45 Dose: 4 unit Documented by: Sodium Chloride (0.9 % Sodium Chloride Flush 3 Ml Syringe) 3 ml IVFLUSH QSHIFT [facility] Last Admin: 01/17/22 07:45 Dose: 3 ml Documented by: Home Medications Medication Instructions Recorded Confirmed Last Taken Type No Known Home Meds 01/17/22 01/17/22 Unknown History Physical Exam Vital Signs: Vital Signs: Last Vital Signs Temp 97.0 F 01/17/22 08:00 Pulse 72 01/17/22 10:00 Resp 14 01/17/22 10:00 BP 165/92 H 01/17/22 10:00 Pulse Ox 96 01/17/22 10:00 BMI result Body Mass Index 27.6 Neuro: Other: He was alert and awake with normal spontaneity of speech fluency comprehension and affect. Pupils were about 3 mm round reactive to light. Extraocular muscles were intact. Visual villasenor are full to confrontation. Face was symmetrical. There was no pronator drift. Deep tendon reflexes were trace with flexor plantars. There was no obvious neglect. Results Labs CBC & Chem 7: 01/17/22 05:04 01/17/22 05:04 Labs: Short CBC 01/16/22 01/17/22 Range/Units 19:50 05:04 WBC 7.6 7.6 (4.8-10.8) X10*3/uL Hgb 13.9 L 12.5 L (14.0-18.0) g/dl Hct 40.3 L 37.2 L (42.0-52.0) % Plt Count 289 262 (160-400) X10*3/uL BMP 01/16/22 01/17/22 19:50 05:04 Sodium 133 L 136 Potassium 4.2 3.5 Chloride 98 102 Carbon Dioxide 27 23 BUN 9 8 L Creatinine 1.14 1.04 Calcium 9.6 8[address] and CTA of brain and neck did not reveal any significant lesion. Assessment and Plan (1) Cerebrovascular accident: Status: Acute 46 years old man with uncontrolled hypertension came to emergency room with left-sided weakness and slurred speech. With diagnosis of evolving cerebral infarct he was treated with intravenous tPA. He did well and his symptoms resolved. Blood pressure was better now though initially it was quite high. His tox screen was positive for cocaine. At this time I recommend obtaining an MRI of brain without contrast for better definition of his problem. He was strongly advised to take care of his health follow through with the primary care physician and control his blood pressure. After 24 hours of tPA, baby aspirin daily is recommended. A statin is recommended for hyperlipidemia. Appropriate management for hyperglycemia or diabetes is recommended. He should be strongly advised to not use cocaine. Procedures Date of Service Date of Service: 01/17/22
[2022-01-17 11:12] LABS: Glucose, Whole Blood 277 mg/dL (60-115)
--- NOTE | 2022-01-17 12:53 | MHC.CM.PN ---
Met with pt to discuss d/c planning: pt resides with spouse/family, independent with all care needs, works, drives and does not use assistive devices. Pt states he does not have a PCP and can't recall the name or approximate date of his last provider visit. Pt receptive to assistance with obtaining a PCP. Declined HCP at this time, Skip x 3 Pfizer. Pt also noted to be a new diabetic with an A1C >11. It is likely he will need insulin at d/c. CM to follow: it is unlikely pt would qualify for VNA as he does not have a PCP established yet and is not homebound. [facility] care team will focus on diabetic education and insulin administration w/pt and spouse to prepare him for d/c. Spouse can transport pt to home.
--- NOTE | 2022-01-17 13:02 | PM.CCPN ---
Subjective Subjective Date of Service: 01/17/22 Interval History: Mr. Rivas was admitted to the ICU last night after tPA was administered in the ED for a presumed stroke. The patient is a 38-year-old gentleman with no PMHx.? He denies ever being diagnosed with HTN.? His tells me that he?s never seen a doctor. He presented ambulatory to the ED last night reporting his right face was droopy and was unable to speak and had unsteady gait. ?He reported that he had been using cocaine, last being 2 days prior. In the ED the patient had right facial droop and dysarthria, w left arm and left leg weakness 4/5 in comparison to 5/5 on the right. NIH score of 4.? Presenting BP was up to 215/117.? CT head showed nonspecific hypodensity in the left postcentral gyrus -- ? artifact or ischemia. ?However patient had left-sided weakness and symptoms.? CTA showed mild atheromatous disease in the cervical vasculature without significant stenosis or vessel occlusion.? There was mild to moderate stenoses in the intracranial right vertebral artery with a focal severe stenosis distal to the PICA origin; moderate stenosis in the proximal basilar artery; moderate to severe stenoses in the posterior cerebral arteries, particularly at the P1/P2 junction on the right side; moderate stenosis in the supraclinoid left internal carotid artery; and multifocal mild to moderate stenoses in the MCA and INDIGO vasculature. The patient was tx w labetalol to lower his blood pressure, then, after consultation with Dr. Ware, was given tPA..? The patient's symptoms improved dramatically within a couple hours. ?By the time of arrival in the ICU, he was able to speak in full sentences, felt significantly better than before, and his face and left sided weakness deficits mostly resolved. Overnight blood pressure ran 130s-160s, with no treatment.. This morning, he?s fully alert and appropriate.? He?s been eating and has been out of bed to the bathroom.? He went for MRI which showed an acute infarct extending from the right velasquez radiate into the posterior right putamen, w background moderate chronic microangiopathy.? He says that he has completely recovered from his right facial droop, dysarthria, and left-sided weakness, but his tells me that she still notices a very minor speech abnormality.? Heart rate is 69, blood pressure 160/87.? Breathing easy with sat 100% on room air.? On my exam, I notice no cranial nerve deficits and peripheral motor exam is symmetrical.? I noticed no speech deficits. LABORATORY DATA: Below. ECHOCARDIOGRAM:? Notable for moderately increased LV wall thickness, and impaired relaxation filling pattern, with grade 1 diastolic dysfunction. IMPRESSION: 1. This is a 38 he year old male with probable history of hypertension as judged by his echo and CTA findings, if not by his presenting and current BP.? And his creat may be a bit higher than it should be.? I put him on lisinopril 10 mg daily now. 2. Acute right sided stroke on MRI.? Will start atorvastatin 80 mg and baby aspirin tonight. 3. Fairly significant intracranial vascular disease. 4. Newly diagnosed DM, with Hb A1c 11.7%.? For now we have him on sliding scale.? He can start with oral agents. Obviously needs close f/u, good BP control, statin, platelet inhibitor, diabetes control, and stay off the drugs. Stable for transfer to med surg.? Will sign out to hospitalists. Critical Care Time (minutes): 0 Physical Exam Vital Signs: Vital Signs: Last Vital Signs Temp 97.8 F 01/17/22 12:00 Pulse 71 01/17/22 12:00 Resp 17 01/17/22 12:00 BP 160/87 H 01/17/22 12:00 Pulse Ox 98 01/17/22 12:00 BMI result Body Mass Index 27.6 Objective Data Labs CBC & Chem 7: 01/17/22 05:04 01/17/22 05:04 Labs: Laboratory Results - last 24 hr 01/16/22 01/16/22 01/16/22 19:50 19:50 19:50 WBC 7.6 RBC 4.74 Hgb 13.9 L Hct 40.3 L MCV 85.0 MCH 29.3 MCHC 34.5 RDW 13.2 Plt Count 289 MPV 10.4 Immature Gran % (Auto) 0.4 Neut % (Auto) 61.3 Lymph % (Auto) 28.2 Meagher % (Auto) 7.6 Eos % (Auto) 2.1 Baso % (Auto) 0.4 Lymph # (Auto) 2.2 Meagher # (Auto) 0.6 Eos # (Auto) 0.2 Baso # (Auto) 0.0 Abs Immat Gran (auto) 0.03 Absolute Neuts (auto) 4.7 Absolute Nucleated RBC 0.000 Nucleated RBC % (auto) 0.0 PT 11.8 Whole Blood PT INR 1.0 Whole Blood INR Sodium 133 L Potassium 4.2 Chloride 98 Carbon Dioxide 27 Anion Gap 12 BUN 9 Creatinine 1.14 Estim Creat Clear Calc 84.4 Estimated GFR > 60 POC Glucose Random Glucose 320 H Estimat Average Glucose Hemoglobin A1c % Calcium 9.6 Troponin I High Sens Triglycerides Cholesterol LDL Cholesterol, Calc HDL Cholesterol Hold Red Top Urine Opiates Screen Urine Fentanyl Screen Ur Barbiturates Screen Ur Phencyclidine Scrn Ur Amphetamines Screen U Benzodiazepines Scrn Urine Cocaine Screen U Marijuana (THC) Screen COVID-19 (JON) COVID-[employer] 01/16/22 01/16/22 01/16/22 19:50 19:50 20:06 WBC RBC Hgb Hct MCV MCH MCHC RDW Plt Count MPV Immature Gran % (Auto) Neut % (Auto) Lymph % (Auto) Meagher % (Auto) Eos % (Auto) Baso % (Auto) Lymph # (Auto) Meagher # (Auto) Eos # (Auto) Baso # (Auto) Abs Immat Gran (auto) Absolute Neuts (auto) Absolute Nucleated RBC Nucleated RBC % (auto) PT Whole Blood PT 11.9 INR Whole Blood INR 1.0 Sodium Potassium Chloride Carbon Dioxide Anion Gap BUN Creatinine Estim Creat Clear Calc Estimated GFR POC Glucose Random Glucose Estimat Average Glucose Hemoglobin A1c % Calcium Troponin I High Sens 4.6 Triglycerides Cholesterol LDL Cholesterol, Calc HDL Cholesterol Hold Red Top Urine Opiates Screen Urine Fentanyl Screen Ur Barbiturates Screen Ur Phencyclidine Scrn Ur Amphetamines Screen U Benzodiazepines Scrn Urine Cocaine Screen U Marijuana (THC) Screen COVID-19 (JON) Negative COVID-[employer] See Note 01/16/22 01/16/22 01/16/22 20:13 22:04 23:22 WBC RBC Hgb Hct MCV MCH MCHC RDW Plt Count MPV Immature Gran % (Auto) Neut % (Auto) Lymph % (Auto) Meagher % (Auto) Eos % (Auto) Baso % (Auto) Lymph # (Auto) Meagher # (Auto) Eos # (Auto) Baso # (Auto) Abs Immat Gran (auto) Absolute Neuts (auto) Absolute Nucleated RBC Nucleated RBC % (auto) PT Whole Blood PT INR Whole Blood INR Sodium Potassium Chloride Carbon Dioxide Anion Gap BUN Creatinine Estim Creat Clear Calc Estimated GFR POC Glucose 292 H 253 H Random Glucose Estimat Average Glucose Hemoglobin A1c % Calcium Troponin I High Sens Triglycerides Cholesterol LDL Cholesterol, Calc HDL Cholesterol Hold Red Top See Note Urine Opiates Screen Urine Fentanyl Screen Ur Barbiturates Screen Ur Phencyclidine Scrn Ur Amphetamines Screen U Benzodiazepines Scrn Urine Cocaine Screen U Marijuana (THC) Screen COVID-19 (JON) COVID-19 [employer] 01/17/22 01/17/22 01/17/22 05:04 05:04 05:04 WBC 7.6 RBC 4.45 L Hgb 12.5 L Hct 37.2 L MCV 83.6 MCH 28.1 MCHC 33.6 RDW 13.2 Plt Count 262 MPV 10.4 Immature Gran % (Auto) 0.4 Neut % (Auto) 54.6 Lymph % (Auto) 34.8 Meagher % (Auto) 7.3 Eos % (Auto) 2.5 Baso % (Auto) 0.4 Lymph # (Auto) 2.7 Meagher # (Auto) 0.6 Eos # (Auto) 0.2 Baso # (Auto) 0.0 Abs Immat Gran (auto) 0.03 Absolute Neuts (auto) 4.2 Absolute Nucleated RBC 0.000 Nucleated RBC % (auto) 0.0 PT Whole Blood PT INR Whole Blood INR Sodium 136 Potassium 3.5 Chloride 102 Carbon Dioxide 23 Anion Gap 15 BUN 8 L Creatinine 1.04 Estim Creat Clear Calc 92.5 Estimated GFR > 60 POC Glucose Random Glucose 288 H Estimat Average Glucose 289 Hemoglobin A1c % 11.7 Calcium 8.8 D Troponin I High Sens Triglycerides 247 Cholesterol 246 LDL Cholesterol, Calc 162 HDL Cholesterol 35 Hold Red Top Urine Opiates Screen Urine Fentanyl Screen Ur Barbiturates Screen Ur Phencyclidine Scrn Ur Amphetamines Screen U Benzodiazepines Scrn Urine Cocaine Screen U Marijuana (THC) Screen COVID-19 (JON) COVID-19 [employer] 01/17/22 01/17/22 01/17/22 07:17 07:57 11:09 WBC RBC Hgb Hct MCV MCH MCHC RDW Plt Count MPV Immature Gran % (Auto) Neut % (Auto) Lymph % (Auto) Meagher % (Auto) Eos % (Auto) Baso % (Auto) Lymph # (Auto) Meagher # (Auto) Eos # (Auto) Baso # (Auto) Abs Immat Gran (auto) Absolute Neuts (auto) Absolute Nucleated RBC Nucleated RBC % (auto) PT Whole Blood PT INR Whole Blood INR Sodium Potassium Chloride Carbon Dioxide Anion Gap BUN Creatinine Estim Creat Clear Calc Estimated GFR POC Glucose 250 H 277 H Random Glucose Estimat Average Glucose Hemoglobin A1c % Calcium Troponin I High Sens Triglycerides Cholesterol LDL Cholesterol, Calc HDL Cholesterol Hold Red Top Urine Opiates Screen Not Detected Urine Fentanyl Screen Not Detected Ur Barbiturates Screen Not Detected Ur Phencyclidine Scrn Not Detected Ur Amphetamines Screen Not Detected U Benzodiazepines Scrn Not Detected Urine Cocaine Screen POSITIVE H U Marijuana (THC) Screen Not Detected COVID-19 (JON) COVID-19 Clin Com Quality Stroke Does the patient have a stroke diagnosis?: Yes Reason for No Anti-thrombotic by Day Two: N/A - Med Ordered VTE Prior VTE?: No VTE Risk Level:: Medical - low VTE Device Contraindication: Treatment Not Indicated VTE Drug Contraindication: Treatment Not Indicated
[2022-01-17] MEDS: lisinopriL 10 MG TABLET PO (14:12)
--- NOTE | 2022-01-17 15:42 | PM.EVENT ---
Event Note Date of Service: 01/17/22 Event Note: Patient seen and examined. Patient was admitted to ICU secondary to acute stroke status post tPA, uncontrolled hypertension, possible new onset diabetes mellitus. He also has cocaine use . Physical exam: Appearance: Alert.? Oriented X3.? ? cvs: rrr, [id number] . res: clear to auscultation ,no rhonchii or wheezing abd: no rebound or guarding ,nt, bs present. ext pulses present , no cyanosis . neuro: axo3 , Face symmetrical.? There was no pronator drift.? Deep tendon reflexes were trace with flexor plantars.? There was no obvious neglect. moves all ext brain Mri: acute infarct extending from the right velasquez radiata into the posterior right putamen. Assessment and plan: Coordinated in ICU note Discussed with ICU in detail. Acute CVA: Status post tPA, continue aspirin, statin, dm and blood pressure control Patient was strongly advised to stop cocaine, care team elevation added.
--- NOTE | 2022-01-17 15:53 | MHC.RECOVRN ---
Met with pt in 262 prior to transfer to S3. Pt in bed, awake, alert, easily engaged in conversation. Pt reports using cocaine, 1.5 grams, IN, 1 x per week. Pt reports recent recovery time of 3 weeks due to my told me to stop. Pt reports longest period in recovery was 2 years; during that time patient focused on work and family. Pt states I only do it when I republican. Pt educated regarding relationship of cocaine and current medical problems, pt verbalizes understanding. Pt informed of recovery resources and support options, including recovery coaching, pt declines at this time. Pt states After this I'm just not going to do it. No more. Pt provided with t/w contact information and encouraged to reach out if more support is needed. Pt plans to return home with supportive and continue working. T/w available as needed.
[2022-01-17 16:43] LABS: Glucose, Whole Blood 223 mg/dL (60-115)
[2022-01-17 20:50] LABS: Glucose, Whole Blood 210 mg/dL (60-115)
[2022-01-17] MEDS: Aspirin Enteric Coated 81 MG TABLET.DR PO (21:29)
[2022-01-17] MEDS: Atorvastatin Calcium 80 MG TABLET PO (21:29)
[2022-01-17] MEDS: Omeprazole 20 MG CAPSULE.DR PO (21:29)
[2022-01-17] MEDS: Insulin Glargine,Hum.rec.anlog 100 UNIT/ML 10 ML VIAL 15 UNIT SUBCUT (21:37)
--- NOTE | 2022-01-17 21:43 | CA_ITS ---
Transthoracic Echocardiogram Patient (Last, First, Middle): Kindra Rivas, Gender: Male Date of : 1975 Age: 46 Procedure Date: 01/17/2022 Procedure Type: Transthoracic Echocardiogram [place] [facility] [place]: 180.34 cm Weight: 89.36 kg BSA: 2.10 m2 Heart Rate: bpm BP: 157 / 96 mmHg Convict Guard: STEPHEN Referring MD: Esdras PETERSON Truck Unloader: Chay Riley MD Symptoms: STROKE Study Quality: Fair ECG Rhythm: Sinus Conclusions: - 1. Normal LV systolic function with moderate LVH with grade 1 diastolic dysfunction 2. Normal cardiac valvular Doppler 3. Normal RV systolic pressure 4. No gross pericardial effusion Findings Left Ventricle Normal left ventricular size and systolic function. There is moderately increased left ventricular wall thickness. The visually estimated ejection fraction is between 60-65%. Spectral Doppler is indicative of an impaired relaxation filling pattern. E/E prime ratio is <8, consistent with normal filling pressures. Evidence suggests grade I (mild) diastolic dysfunction. Right Ventricle Normal right ventricular cavity size and systolic function. Atria The left atrium is likely dilated. Interatrial shunt cannot be excluded. The right atrium is normal in size. Aortic Valve Normal aortic valve structure and function. There is no aortic valve stenosis. There is no aortic valve regurgitation. Mitral Valve Normal mitral valve structure and function. There is trace mitral valve regurgitation. There is no mitral valve stenosis. Pulmonic Valve The pulmonic valve is likely normal. There is trace pulmonic valve regurgitation. Tricuspid Valve Normal tricuspid valve structure. There is trace tricuspid valve regurgitation. The right ventricular systolic pressure is normal. The right ventricular systolic pressure is 22 mmHg. Normal right atrial pressure. There is no evidence of pulmonary hypertension. Great Vessels All visible segments of the aorta are normal in size. The pulmonary artery was not well visualized. Venous The inferior vena cava is normal in size and collapses greater than 50% with inspiration. Pericardium/Pleural There is no evidence of pericardial effusion. Prior Study Comparison No prior study available for comparison. Recommendations, Care & Conclusions Consider a RONNIE if clinically appropriate. Recommend contrast study to evaluate intracardiac shunting. Measurements 2D Linear Measurements IVSd: 1.45 0.6-0.9/0.6-1.0 cm LVIDd: 4.51 3.9-5.3/4.2-5.9 cm LVIDd Index: 2.15 2.4-3.2/2.2-3.1 cm/m2 LVIDs: 3.25 2.0-3.6 cm LVPWd: 1.39 0.7-1.1 cm LA Diam: 4.30 2.7-3.8/3.0-4.0 cm LAIDs Index: 2.05 1.5-2.3 cm/m2 LV Mass: 317.54 67-162/88-224 g LV Mass Index: 151.21 43-95/49-115 g/m2 LVOT Diam: 2.20 3.0+(-)1.3 cm Mitral Valve MV Pk E: 0.69 MV PK A: 0.69 MV Decel Time: 207.00 E/A: 1.00 E'Lateral: 8.59 E'Medial: 7.07 E/E' Med: 9.70 E/E' Lat: 8.00 PHT: 61.00 MVA PHT: 3.61 Decel [place]: 3.31 Aortic Valve AoV Pk Jose: 1.03 AoV Mn Jose: 0.78 AoV VTI: 0.21 AoV Pk Grad: 4.00 Aov Mn Grad: 3.00 NORMA Cont.VTI: 2.93 LVOT LVOT Pk Jose: 0.84 LVOT Mn Jose: 0.59 LVOT VTI: 0.16 LVOT Pk Grad: 3.00 LVOT Mn Grad: 2.00 LVOT Diam: 2.20 LVOT Area: 3.80 Diastolic Function MV Pk E: 0.69 MV Pk A: 0.69 E/A: 1.00 E'Medial: 7.07 E/E' Med: 9.70 E' Laterial: 8.59 E/E' Lat: 8.00 Right Ventricle TAPSE (mm): 25.40 TVS' Jose: 12.90 Tricuspid Valve TR Pk Jose: 2.18 TR Pk Grad: 19.00 RA Press: 3.00 RVSP: 22.00 Great Vessels Aorta Sinus of Valsalva: 3.50 2.0-3.[address] [place]: 2.93 1.7-3.4 cm Ao Asc: 3.70 2.1-3.4 cm Updated in Other Vendor System with Status of Final Chay Riley MD electronically signed on 01/17/2022 11:12:20 AM with status of Final
[2022-01-18 03:29] VITALS: BP 135/83; PULSE 68; RESP 18; TEMP 36.8; O2SAT 98
[2022-01-18 07:01] VITALS: BP 144/91; PULSE 73; RESP 18; TEMP 37.3; O2SAT 98
[2022-01-18 07:10] LABS: Glucose, Whole Blood 243 mg/dL (60-115)
[2022-01-18] MEDS: Insulin Lispro 100 UNIT/ML 3 ML VIAL SUBCUT ×4 (08:12→12:09)
[2022-01-18] MEDS: lisinopriL 10 MG TABLET PO (08:14)
[2022-01-18] MEDS: 0.9 % Sodium Chloride Flush 3 ML SYRINGE IVFLUSH (08:20)
--- NOTE | 2022-01-18 10:39 | MHC.STROKEDC ---
I MET WITH PATIENT AND . I PROVIDED ADDITIONAL STROKE EDUCATION AND DISCHARGE INSTRUCTIONS. HE WILL NEED TO FOLLOW UP WITH DR KIMBLE WITHIN A MONTH - CALL [phone] TO MAKE AN APPOINTMENT. DR KIMBLE WANTS TO REPEAT THE CTA HEAD/NECK TO COMPARE TO INITIAL SCAN. HE SHOULD REMAIN OUT OF WORK FOR 1-2 WEEKS. HE HAS A BLOOD PRESSURE MACHINE AND I GAVE HIM TRACKING GUIDE AND INSTRUCTIONS ON HOW TO TAKE HIS BLOOD PRESSURE. HIS GOAL IS 130/70. I REINFORCED SIGNS AND SYMPTOMS OF STROKE, SUDDEN ONSET DIZZINESS, BALANCE, WEAKNESS ON ONE SIDE, SPEECH ISSUES. I STRESSED THE DIABETIC DIET AND I CONTACTED THE SIDE PIECE COVERER. WE DISCUSSED THE NEED FOR INSULIN AND HE IS WILLING TO LEARN. I ALSO STRESSED THE IMPORTANCE OF ONGOING CARE WITH HIS PRIMARY CARE PHYSICIAN. I ALSO SUGGESTED THE [facility] [phone]. IF HE NEEDS HELP OR SUPPORT WITH ANY WITHDRAWAL ISSUES. VOCATIONAL ED INSTRUCTOR - DAMON LECHUGA RN [phone]
[2022-01-18 11:27] VITALS: BP 135/90; PULSE 70; RESP 18; TEMP 36.7; O2SAT 99
[2022-01-18 11:34] LABS: Glucose, Whole Blood 213 mg/dL (60-115)
--- NOTE | 2022-01-18 12:08 | MHC.CM.PN ---
PATIENT IS DC HOME WITH OUTPATIENT RESOURCE INFORMATION. HE HAS BEEN ENCOURAGED TO SECURE A PCP FOR CONTINUED HEALTH AND DISEASE MANAGEMENT.
--- NOTE | 2022-01-18 12:26 | MHC.CM.PN ---
Pt has a new provider appointment with Zhanna Baez on 02/15 at 11 am. Information will be included on pt's d/c instructions and relayed to him by CM. MD mayer.
--- NOTE | 2022-01-18 12:39 | P.DS_ITS ---
DS: Providers Provider Date of Service: 01/18/22 Date of admission: 01/16/22 21:43 Primary care physician: Unknown Physician Consults: 01/17/22 10:00 Consult to Neurology Routine Consulting Provider: Pippa Ware Reason for consultation: stroke Has provider been notified: Yes 01/17/22 13:08 Consult to Care Team Routine Comment: Reason for consultation: use of cocaine, resulting in stroke DS: Diagnosis Discharge Diagnosis (1) Cerebrovascular accident: Status: Acute DS: Summary Hospital Course Hospital Course: 38-year-old gentleman with no PMHx.? He denies ever being diagnosed with HTN.? His tells me that he?s never seen a doctor. He presented ambulatory to the ED last night reporting his right face was droopy and was unable to speak and had unsteady gait. ?He reported that he had been using cocaine, last being 2 days prior. In the ED the patient had right facial droop and dysarthria, w left arm and left leg weakness 4/5 in comparison to 5/5 on the right. NIH score of 4.? Presenting BP was up to 215/117.? CT head showed nonspecific hypodensity in the left postcentral gyrus -- ? artifact or ischemia. ?However patient had left-sided weakness and symptoms.? CTA showed mild atheromatous disease in the cervical vasculature without significant stenosis or vessel occlusion.? There was mild to moderate stenoses in the intracranial right vertebral artery with a focal severe stenosis distal to the PICA origin; moderate stenosis in the proximal basilar artery; moderate to severe stenoses in the posterior cerebral arteries, particularly at the P1/P2 junction on the right side; moderate stenosis in the supraclinoid left internal carotid artery; and multifocal mild to moderate stenoses in the MCA and INDIGO vasculature. The patient was tx w labetalol to lower his blood pressure, then, after consultation with Dr. Ware, was given tPA..? The patient's symptoms improved dramatically within a couple hours. ?By the time of arrival in the ICU, he was able to speak in full sentences, felt significantly better than before, and his face and left sided weakness deficits mostly resolved. He went for MRI which showed an acute infarct extending from the right velasquez radiate into the posterior right putamen, w background moderate chronic microangiopathy.? Hospital course: Patient was admitted to the hospital because of stroke-received tPA-seems to be improved, also found to have new onset diabetes started on insulin, diabetic education given detail also patient is to follow up outpatient with PCP and director religious education. Hypertension: Added lisinopril, patient is to monitor his blood pressure at home and follow-up with PCP. Hypercholesteremia: Patient is also on statin. All medications [facility] and also confirmed with calling them also in addition given verbal order to pharmacy for diabetic supplies (including glucometer, lancets, alcohol swabs,test strips). Patient was advised strongly to avoid cocaine use, also has PCP appointment . Above management discussed with the patient and his in detail length both understand and in agreement with the above plan, time spent 50 minutes and 50% time spent on counseling. Significant findings: As above. Procedures performed: None. Treatment and response: As above. Complications: None. Time Spent with Patient Time attestation: Total time spent providing and/or coordinating discharge services: Discharge coordination time: Greater than 30 minutes Quality: Safe Use of Opioids Does Pt have an Active Cancer Diagnosis on the Problem List?: No Quality: Stroke Does the patient have a stroke diagnosis?: No Physical Exam Vital Signs: Vital Signs: Last Vital Signs Temp 98.0 F 01/18/22 11:27 Pulse 70 01/18/22 11:27 Resp 18 01/18/22 11:27 BP 135/90 H 01/18/22 11:27 Pulse Ox 99 01/18/22 11:27 BMI result Body Mass Index 27.6 Appearance: Alert.? Oriented X3.? ? cvs: rrr, [id number] . res: clear to auscultation ,no rhonchii or wheezing abd: no rebound or guarding ,nt, bs present. ext pulses present , no cyanosis . neuro: axo3 , Face symmetrical.? There was no pronator drift.? Deep tendon reflexes were trace with flexor plantars.? There was no obvious neglect. moves all ext DS: Data Data Completed and Pending Labs on day of discharge: Laboratory Results - last 24 hr 01/17/22 01/17/22 01/18/22 16:35 20:45 07:05 POC Glucose 223 H 210 H 243 H 01/18/22 11:29 POC Glucose 213 H Additional Comments Additional comments: echo:Conclusions: - 1.? Normal LV systolic function with moderate LVH with grade 1 diastolic dysfunction? 2.? Normal cardiac valvular Doppler? 3.? Normal RV systolic pressure? 4. No gross pericardial effusion ? MRI:MR/MR head/brain wo con IMPRESSION: - There is an acute infarct extending from the right velasquez radiata into the posterior right putamen. No mass effect and no hemorrhagic transformation. ? - There is background moderate chronic microangiopathy. CTA: CT/CT angio head? neck stroke IMPRESSION: ? Mild atheromatous disease in the cervical vasculature without significant stenosis or vessel occlusion. ? Mild to moderate stenoses in the intracranial right vertebral artery with a focal severe stenosis distal to the PICA origin. Moderate stenosis in the proximal basilar artery. ? Moderate to severe stenoses in the posterior cerebral arteries, particularly at the P1/P2 junction on the right side. ? Moderate stenosis in the supraclinoid left internal carotid artery. ? Multifocal mild to moderate stenoses in the MCA and INDIGO vasculature. ? Mild asymmetric soft tissue prominence along the tongue base on the left side and of the left pharyngeal wall; correlate with direct visual inspection in order to exclude an underlying lesion. No cervical adenopathy. Discharge Plan Discharge Patient Disposition: Home, Self-Care Discharge Diagnosis: CVA, new onset diabetes, hypertension, hyperlipidemia. Referrals: Adam Frye MD [Physician] - 1 Week (follow up outpatiently) Pippa Ware MD [Physician] - 2 Weeks (follow up outpatient.) Zhanna Baez FNP [Nurse Practitioner] - 02/15/22 11:00 am (You have an appointment to establish care with Zhanna Baez on February 15 at 11 am. ) PhysicianTheodora [Primary Care Provider] - 1 Week Discharge Medications: New atorvastatin 80 mg Tablet 80 mg PO BEDTIME Qty: 30 0RF aspirin 81 mg Tablet,Delayed Release (Dr/Ec) 81 mg PO BEDTIME Qty: 30 0RF lisinopril 10 mg Tablet 10 mg PO DAILY Qty: 30 0RF Protocol: Hold for SBP< HOLD for SBP < : 90 omeprazole 20 mg Capsule,Delayed Release(Dr/Ec) 20 mg PO BEDTIME Qty: 30 0RF Basaglar KwikPen U-100 Insulin 100 unit/mL (3 mL) insulin pen 20 unit subcut QPM Qty: 15 0RF insulin lispro [Humalog KwikPen Insulin] 100 unit/mL insulin pen 4 unit subcut TID Qty: 15 0RF Discharge Orders: Discharge Order (Routine); Ordered 01/18/22 Ordered By: Dimitrios Nelson Diet: advance to usual diet, diabetic diet, low fat, low cholesterol and low salt diet Activity on Discharge: As tolerated Stand Alone Forms: Patient Portal Discharge page Care Plan Goals: Patient was admitted to the hospital because of stroke-received tPA-seems to be improved, also found to have new onset diabetes started on insulin, diabetic education given detail also patient is to follow up outpatient with PCP and director religious education. Hypertension: Added lisinopril, patient is to monitor his blood pressure at home and follow-up with PCP. Hypercholesteremia: Patient is also on statin. Patient was advised strongly to avoid cocaine use, also also need PCP appointment he understand and he will arrange nausea PCP appointment. Health Concerns: As above. Plan of Treatment: As above. Assessment: As above. Patient Instructions: Insulin Lispro (By injection), Type 2 Diabetes in Adults: New Diagnosis (GEN), Ischemic Stroke (GEN), Chronic Hypertension (GEN), Hemoglobin A1c (GEN), Hypertension and Diabetes (GEN)
== END 2022-01-18 15:42 | disposition home or self-care (01) | DRG 45 ==
LOC: HO.ED 23:15 → HO.EDOVER 23:25 → HO.ICU 23:29 → HO.S3 01-17 15:34
PROVIDERS: Admitting Provider Physician Assistant Medical; Emergency Provider Internal Medicine; Visit Provider Internal Medicine
DX: I63.89 Other cerebral infarction (principal); G81.94 Hemiplegia, unspecified affecting left nondominant side; I10 Essential (primary) hypertension; F14.10 Cocaine abuse, uncomplicated; R29.705 NIHSS score 5; E11.9 Type 2 diabetes mellitus without complications; R29.810 Facial weakness; Z59.02 Unsheltered homelessness; Z91.19 Patient's noncompliance with other medical treatment and regimen; Z20.822 Contact with and (suspected) exposure to COVID-19; Z79.4 Long term (current) use of insulin; Z79.82 Long term (current) use of aspirin; Z79.899 Other long term (current) drug therapy
CPT/HCPCS: 36415; 70450; 70496; 70498; 70551; 71045; 80048; 80061; 80307; 82947; 83036; 84484; 85025; 85610; 87635; 93005; 93306; 96374; 96376; 97162; 97166; 99285; 99291; J2997; Q9967

== ENCOUNTER 2022-02-01 09:31 | Outpatient (REF) | payer BC, SELFPAY ==
[2022-02-01 11:09] LABS: TSH reflex Free T4 1.04 uIU/mL (0.32-4.0); Vitamin D 25-OH Total 14.9 ng/mL (>30)
[2022-02-01 11:13] LABS: Creatinine Urine 341.28 mg/dL; Microalbum/Creatinine Ratio Ur 39.8 ug/mg cr
[2022-02-01 11:26] LABS: Folate 9.6 ng/mL (> or = 4.0); Vitamin B12 666 pg/mL (200-900)
== END 2022-02-01 09:32 | disposition home or self-care (01) ==
LOC: HO.LAB 09:31
PROVIDERS: PCP Nurse Practitioner Family; Visit Provider Nurse Practitioner Family
DX: E11.9 Type 2 diabetes mellitus without complications (principal); Z13.29 Encounter for screening for other suspected endocrine disorder
CPT/HCPCS: 36415; 82043; 82306; 82607; 82746; 84443

== ENCOUNTER 2022-03-02 10:45 | Emergency (ER) | payer BC, SELFPAY ==
--- NOTE | ~2022-03-02 | CT_ITS ---
EXAMINATION: CT HEAD WITHOUT CONTRAST CLINICAL INFORMATION: Left-sided facial droop COMPARISON: None TECHNIQUE: Contiguous axial imaging was performed from the skull base to vertex without intravenous administration of contrast. This CT examination was performed using dose optimization techniques as appropriate, variously including the following: *Automated exposure control *Adjustment of mA and/or kV according to patient size (this includes techniques or standardized protocols for targeted exams where dose is matched to indication/reason for exam; i.e. extremities or head) *Use of iterative reconstruction technique DLP: 793 mGy-cm FINDINGS: There is no evidence of acute intracranial hemorrhage or territorial infarction. No abnormal mass effect or midline shift is seen. Yan to white matter differentiation is well preserved. No extra-axial fluid collections are identified. The ventricles are normal in size. There is no abnormal attenuation within the brain parenchyma. The osseous structures and soft tissues are normal. The mastoid air cells and visualized portions of the paranasal sinuses are well aerated. CT/CT head/brain wo con IMPRESSION: No acute intracranial process seen.
--- NOTE | ~2022-03-02 | MR_ITS ---
EXAMINATION: MRI BRAIN WITHOUT CONTRAST CLINICAL INFORMATION: Left-sided facial droop. COMPARISON: CT scan of the head 03/02/2022. Brain MRI 01/17/2022. TECHNIQUE: Multiplanar MR imaging of the brain was performed without contrast. FINDINGS: The small white matter infarct that was demonstrated on prior imaging from 01/27/2022 now demonstrates subacute to chronic features. No acute territorial infarct. There are scattered chronic small vessel ischemic changes visualized within the periventricular white matter. No pathological magnetic susceptibility artifact. Intracranial vascular flow voids are grossly maintained. There is no intracranial mass effect or midline shift. No abnormal extra-axial collection. Lateral and third ventricles are normal. No hydrocephalus. Midline structures including the cervicomedullary junction are normal. No acute bone marrow signal changes. There is a trace left mastoid tip effusion. Mild to moderate paranasal sinus disease primarily affecting the ethmoid air cells and maxillary sinuses. Globes and orbits are symmetric. MR/MR head/brain wo con IMPRESSION: There has been expected evolution of a small amount of subacute to chronic lacunar infarct involving the right centrum semiovale. Scattered chronic small vessel ischemic changes are also visualized within the periventricular white matter. No evidence of acute territorial infarct or hemorrhage.
[2022-03-02 10:49] VITALS: BP 191/98; PULSE 78; RESP 18; TEMP 36.8; O2SAT 98; BMI 27.6
--- NOTE | 2022-03-02 10:52 | ECG_ITS ---
Test Reason : ?stroke Blood Pressure : / mmHG Vent. Rate : 065 BPM Atrial Rate : 065 BPM P-R Int : 154 ms QRS Dur : 100 ms QT Int : 408 ms P-R-T Axes : 039 077 066 degrees QTc Int : 424 ms Normal sinus rhythm Normal ECG When compared to the previous EKG of QRS axis Shifted left Non specific T wave inversion not seen Referred By: Generic ED Physician Electronically Signed By:RHETT UP MD
[2022-03-02 11:03] LABS: Hemoglobin 13.4 g/dl (14.0-18.0); Mean Corpuscular HGB Conc 32.7 g/dl (31.0-36.0); Mean Corpuscular Hemoglobin 27.3 pg (27.0-33.0); Mean Corpuscular Volume 83.5 fL (80.0-98.0); Mean Platelet Volume 9.6 fL (9.4-12.4); Platelet Count 262 X10*3/uL (160-400); Red Blood Count 4.91 X10*6/uL (4.60-5.80); Red Cell Distribution Width 12.5 % (11.0-16.0); White Blood Count 7.5 X10*3/uL (4.8-10.8)
--- NOTE | 2022-03-02 11:13 | ED_ITS ---
HPI - Neuro Symptoms/Deficit General Chief Complaint: Neuro Symptoms/Deficit Stated Complaint: quest of stroke Time Seen by Provider: 03/02/22 11:11 Source: patient and old records reviewed Mode of arrival: ambulatory Limitations: no limitations History of Present Illness HPI Narrative: 46 yo male with recent stroke in december received tpa had L sided hemiparesis that resolved but some residual speech and L face droop was on FaceTime last night and she noted that the patient's facial droop was much worse he has no other complaints. He is compliant with medications. He denies trauma. He has dogs but denies tick bites. Sent by OT. Symptoms started last night. Onset (ago): day(s) (last night) Timing confirmed by: spouse Location: left face History of same: Yes Severity: mild Quality: weak Relieving factors: none Exacerbating factors: none Context: sudden onset On Anticoagulants: No Associated symptoms: denies other symptoms Treatments Prior to Arrival: none Related Data Previous Rx's Medication Instructions Recorded pen needle, diabetic 31 gauge x #100 ea 01/26/2212/14 (BD Ultra-Fine Mini Pen Needle) aspirin 81 mg tablet,delayed 81 mg PO BEDTIME #90 tab 02/03/22 release atorvastatin 80 mg tablet 80 mg PO BEDTIME #90 tab 02/03/22 insulin glargine 100 unit/mL (3 20 unit (0.2 mL) SUBCUT QPM #15 ml 02/03/22 mL) subcutaneous pen (Basaglar KwikPen U-100 Insulin) insulin lispro 100 unit/mL 4 unit (0.04 mL) SUBCUT TID #15 ml 02/03/22 subcutaneous pen (Humalog KwikPen (U-100) Insulin) omeprazole 20 mg capsule,delayed 20 mg PO BEDTIME #90 cap 02/03/22 release blood sugar diagnostic (OneTouch #100 ea 02/07/22 Ultra Test) cholecalciferol (vitamin D3) 50 50 mcg PO DAILY #90 tab 02/14/22 mcg (2,000 unit) tablet cetirizine 10 mg tablet (Zyrtec) 10 mg PO DAILY #90 tab 02/23/22 losartan 25 mg tablet 25 mg PO DAILY #90 tab 02/23/22 amoxicillin 875 mg-potassium 1 tab PO BID #14 tab 03/02/22 clavulanate 125 mg tablet prednisone 20 mg tablet 40 mg PO DAILY 5 Days #10 tab 03/02/22 valacyclovir 1 gram tablet 1,000 mg PO TID 7 Days #21 tab 03/02/22 Allergies Allergy/AdvReac Type Severity Reaction Status Date / Time No Known Allergies Allergy Verified 02/23/22 10:10 Review of Systems Review of Systems: Constitutional : No Fever, No Chills, No Fatigue ENT/Mouth : No sore throat, No Rhinorrhea Eyes: No Eye Pain, No Swelling, No Redness Cardiovascular : No Chest Pain, No SOB, No Dyspnea on Exertion Respiratory : No Cough, No Sputum Gastrointestinal : No Nausea, No Vomiting, No Diarrhea, No abdominal Pain Genitourinary : No Dysuria, No Urinary Frequency, No Hematuria, Musculoskeletal : No joint pain, No Myalgias, No Joint Swelling Skin : No Skin Lesions, No rash Neuro : No Weakness, No Numbness, No Dizziness, no Headache, pos facial droop Psych : No Anxiety/Panic, No Depression Heme/Lymph: No Bruising, No Bleeding,No Lymphadenopathy Endocrine : No Polyuria, No Polydipsia All other systems reviewed and are negative [facility] Past Medical History Attestation statement: The following information was validated with the patient. Medical History Encounter to establish care History of cocaine use Surgical History No pertinent past surgical history Family History Family History Mother Asthma Father Diabetes Family/Other Substance use disorder Social History Social History Household Members: Spouse Housing: House Do you presently have visiting nurse or other home services: No Alcohol intake: current Alcohol intake frequency: holidays/special occasions only Alcohol type: beer and hard liquor Patient Tobacco Use Status: Former Tobacco user Tobacco use type: Cigarette e-Cigarette/Vaping Use: Never Used Second Hand Smoke Exposure: No Substance Use Type: Crack/Cocaine Advance Directives: No Advance Directives Information Provided: No service: No Current occupational status: employed Current occupational exposures/hazards: No Cognitive needs: No Hearing needs: No Vision needs: Yes Physical Exam Vital Signs: Vital Signs: Last Vital Signs Temp 98.2 F 03/02/22 10:49 Pulse 78 03/02/22 10:49 Resp 18 03/02/22 10:49 BP 191/98 H 03/02/22 10:49 Pulse Ox 98 03/02/22 10:49 BMI result Body Mass Index 27.6 Appearance: Alert. Oriented X3. No acute distress. Eyes: Pupils equal, round and reactive to light. ENT: Pharynx normal. Tms normal Neck: Normal inspection. Neck supple. CVS: Normal heart rate and rhythm. Pulses normal. Respiratory: No respiratory distress. Breath sounds normal. Abdomen: Soft and non-tender. Skin: Skin warm and dry. Normal skin color. Normal skin turgor. Extremities: No lower extremity edema. No calf ttp Neuro: Oriented X 3. L sided facial droop involving forehead and eye - cannot close eye or raise eyebrows otherwise No motor deficit. No sensory deficit. Course Course Course Narrative: no acute stroke at this time - possible pansinusitis as the cause will send home on steroids, augmentin, valtrex MDM - Neuro Symptoms/Deficit MDM Narrative Medical decision making narrative: 46 yo male with recent stroke in December comes in with worsening L sided facial droop but it involves mostly the eye and the forehead which is unusual and seems peripheral in nature to me. He denies tick bites. He denies cocaine abuse he has no other deficits. He is compliant with his medications. At this time will obtain labs, CT head and possible MRI - could be yao's palsy as well. Dispo per results and findings. Lab Data Result diagrams: 03/02/22 10:57 03/02/22 10:57 Labs: Lab Results 03/02/22 03/02/22 03/02/22 Range/Units 10:57 10:57 10:57 WBC 7.5 (4.8-10.8) X10*3/uL RBC 4.91 (4.60-5.80) X10*6/uL Hgb 13.4 L (14.0-18.0) g/dl Hct 41.0 L (42.0-52.0) % MCV 83.5 (80.0-98.0) fL MCH 27.3 (27.0-33.0) pg MCHC 32.7 (31.0-36.0) g/dl RDW 12.5 (11.0-16.0) % Plt Count 262 (160-400) X10*3/uL MPV 9.6 (9.4-12.4) fL Absolute Nucleated RBC 0.000 (0.0-0.012) X10*3/uL Nucleated RBC % (auto) 0.0 (0.0-0.2) /100WBC Sodium 138 (135-145) mmol/L Potassium 4.7 D (3.3-5.1) mmol/L Chloride 105 (96-108) mmol/L Carbon Dioxide 24 (22-29) mmol/L Anion Gap 14 (12-20) BUN 17 H D (9-16) mg/dL Creatinine 1.23 (0.5-1.4) mg/dL Estim Creat Clear Calc 78.2 Estimated GFR > 60 POC Glucose (60-115) mg/dL Random Glucose 117 H D (60-115) mg/dL Calcium 9.8 D (8.4-10.2) mg/dL Troponin I High Sens < 3.5 (<3.5-35.0) ng/L Urine Opiates Screen (Not Detect) Urine Fentanyl Screen (Not Detect) Ur Barbiturates Screen (Not Detect) Ur Phencyclidine Scrn (Not Detect) Ur Amphetamines Screen (Not Detect) U Benzodiazepines Scrn (Not Detect) Urine Cocaine Screen (Not Detect) U Marijuana (THC) Screen (Not Detect) 03/02/22 03/02/22 Range/Units 12:00 14:03 WBC (4.8-10.8) X10*3/uL RBC (4.60-5.80) X10*6/uL Hgb (14.0-18.0) g/dl Hct (42.0-52.0) % MCV (80.0-98.0) fL MCH (27.0-33.0) pg MCHC (31.0-36.0) g/dl RDW (11.0-16.0) % Plt Count (160-400) X10*3/uL MPV (9.4-12.4) fL Absolute Nucleated RBC (0.0-0.012) X10*3/uL Nucleated RBC % (auto) (0.0-0.2) /100WBC Sodium (135-145) mmol/L Potassium (3.3-5.1) mmol/L Chloride (96-108) mmol/L Carbon Dioxide (22-29) mmol/L Anion Gap (12-20) BUN (9-16) mg/dL Creatinine (0.5-1.4) mg/dL Estim Creat Clear Calc Estimated GFR POC Glucose 76 (60-115) mg/dL Random Glucose (60-115) mg/dL Calcium (8.4-10.2) mg/dL Troponin I High Sens (<3.5-35.0) ng/L Urine Opiates Screen Not Detected (Not Detect) Urine Fentanyl Screen Not Detected (Not Detect) Ur Barbiturates Screen Not Detected (Not Detect) Ur Phencyclidine Scrn Not Detected (Not Detect) Ur Amphetamines Screen Not Detected (Not Detect) U Benzodiazepines Scrn Not Detected (Not Detect) Urine Cocaine Screen Not Detected (Not Detect) U Marijuana (THC) Screen Not Detected (Not Detect) Discharge Plan Discharge Clinical Impression: Yao's palsy Acute pansinusitis Qualifiers: Recurrence: non-recurrent Qualified Code(s): J01.40 - Acute pansinusitis, unspecified Patient Disposition: Home, Self-Care Instructions: Sinusitis (ED), Yao Palsy (ED) Additional Instructions: return to ED for any worsening symptoms or concerns MRI does not show acute stroke but does show diffuse sinus disease use lubricating eye drops to prevent dry eyes gently tape eye shut at night if it won't close to prevent scratches to the eye prednisone will raise your blood sugars please be careful and monitor. Prescriptions: New prednisone 20 mg tablet 40 mg PO DAILY 5 Days Qty: 10 0RF amoxicillin-pot clavulanate 875-125 mg tablet 1 tab PO BID Qty: 14 0RF valacyclovir 1 gram tablet 1,000 mg PO TID 7 Days Qty: 21 0RF No Action aspirin 81 mg tablet,delayed release (DR/EC) 81 mg PO BEDTIME Qty: 90 1RF atorvastatin 80 mg tablet 80 mg PO BEDTIME Qty: 90 1RF Basaglar KwikPen U-100 Insulin 100 unit/mL (3 mL) insulin pen 20 unit subcut QPM Qty: 15 2RF insulin lispro [Humalog KwikPen Insulin] 100 unit/mL insulin pen 4 unit subcut TID Qty: 15 2RF omeprazole 20 mg capsule,delayed release(DR/EC) 20 mg PO BEDTIME Qty: 90 0RF (DME) OneTouch Ultra Test Strip See Rx Instructions .Route Qty: 100 2RF Rx Instructions: 4 times per day cholecalciferol (vitamin D3) 50 mcg (2,000 unit) tablet 50 mcg PO DAILY Qty: 90 0RF (DME) pen needle, diabetic [BD Ultra-Fine Mini Pen Needle] 31 gauge x 3/16 needle See Rx Instructions .Route Qty: 100 3RF Rx Instructions: 4XDAY losartan 25 mg tablet 25 mg PO DAILY Qty: 90 0RF cetirizine [Zyrtec] 10 mg tablet 10 mg PO DAILY Qty: 90 0RF Referrals: Zhanna Baez FNP [Primary Care Provider] - 1 day Stand Alone Forms: Work/School Release
[2022-03-02 11:18] LABS: Anion Gap 14 (12-20); Blood Urea Nitrogen 17 mg/dL (9-16); Calcium 9.8 mg/dL (8.4-10.2); Carbon Dioxide 24 mmol/L (22-29); Chloride 105 mmol/L (96-108); Creatinine Clr Calc Pharmacy 78.2; Estimated Glomerular Filt Rate > 60; Glucose Random 117 mg/dL (60-115); Potassium 4.7 mmol/L (3.3-5.1); Sodium 138 mmol/L (135-145)
[2022-03-02 11:22] LABS: Troponin-I High Sensitivity < 3.5 ng/L (<3.5-35.0)
--- NOTE | 2022-03-02 12:07 | MHC.STROKE ---
Addendum entered by Deann Ford RN 03/02/22 14:35: MRI RESULS REVIEWED WITH DR ORONA AND SHARED WITH THE PATIENT. I PROVIDED ADDITIONAL STROKE EDUCATION AND VERIFIED THAT HE HAS A F/U NEUROLOGY APPOINTMENT WITH DR NEWSOME ON 03/28/22 AT 1:40. HIS BP WAS HIGH UPON ARRIVAL AND I ENCOURAGED HIM TO MONITOR THIS ALONG WITH HIS BLOOD SUGARS AND WHY. I ANSWERED THEIR QUESTIONS. HE IS PREPARING FOR DISCHARGE HOME. Original Note: I RECEIVED A TEXT FROM SPEECH DEPT. THAT SHE WAS BRINGING A PATIENT TO THE ED. THIS PATIENT IS KNOWN TO THE STROKE SERVICE. ARRIVED AT 1045. I MET WITH THE PATIENT AND HIS . THE STATED THAT HE WAS DOING WELL SINCE HIS PRIOR STROKE WITH TPA ON 01/16/22. HE WAS EVEN BACK TO WORK. THE NOTICED YESTERDAY AROUND 1200 THAT THE LEFT DROOP WAS MORE PRONOUNCED, BY THE EVENING AND THIS MORNING IS SEEMED EVEN WORSE. THEY DECIDED TO GO THE THEIR SPEECH THERAPY APPOINTMENT TODAY AND SHE DECIDED TO WALK HIM OVER TO THE ED. I DID MEET WITH THE PATIENT AND HIS , EXPLAINED THE PLAN OF CARE, HE HAS BEEN DOING WELL SINCE YESTERDAY, HE IS TAKING ALL OF HIS MEDICATIONS PRESCRIBED AND DENIES ANY COCAINE USE WHEN I ASKED HIM. I ALSO REVIEWED THIS WITH DR ORONA AND THE NURSE CHITO. HE IS EXCLUDED FROM TPA-ALTEPLASE DUE TO RECENT STROKE WITH TPA WITHIN 3 MONTHS AND DELAY IN ARRIVAL > 4.5HRS FROM ONSET. I WILL CONTINUE TO FOLLOW.
[2022-03-02 12:29] LABS: Amphetamine Screen Urine Not Detected (Not Detect); Barbiturates, Urine Not Detected (Not Detect); Benzodiazepines Screen Urine Not Detected (Not Detect); Cannabinoid Screen Urine Not Detected (Not Detect); Cocaine Screen Urine Not Detected (Not Detect); Fentanyl, urine Not Detected (Not Detect); Opiate Screen Urine Not Detected (Not Detect); Phencyclidine Screen Urine Not Detected (Not Detect)
[2022-03-02 14:07] LABS: Glucose, Whole Blood 76 mg/dL (60-115)
[2022-03-04 05:02] LABS: Lyme Abs Screen <0.90 index
== END 2022-03-02 14:57 | disposition home or self-care (01) ==
PROVIDERS: Emergency Provider Emergency Medicine; PCP Nurse Practitioner Family
DX: G51.0 Bell's palsy (principal); J01.40 Acute pansinusitis, unspecified; Z86.73 Personal history of transient ischemic attack (TIA), and cerebral infarction without residual deficits; Z79.899 Other long term (current) drug therapy
CPT/HCPCS: 36415; 70450; 70551; 80048; 80307; 82947; 84484; 85027; 86617; 86618; 93005; 99283; 99285

== ENCOUNTER 2022-03-24 09:38 | Outpatient (REF) | payer BC, SELFPAY ==
[2022-03-24 10:12] LABS: Hematocrit 40.1 % (42.0-52.0); Hemoglobin 13.1 g/dl (14.0-18.0); Mean Corpuscular HGB Conc 32.7 g/dl (31.0-36.0); Mean Corpuscular Hemoglobin 27.5 pg (27.0-33.0); Mean Corpuscular Volume 84.1 fL (80.0-98.0); Mean Platelet Volume 9.8 fL (9.4-12.4); Platelet Count 282 X10*3/uL (160-400); Red Blood Count 4.77 X10*6/uL (4.60-5.80); Red Cell Distribution Width 13.5 % (11.0-16.0); White Blood Count 7.8 X10*3/uL (4.8-10.8)
[2022-03-24 10:22] LABS: Estimated Average Glucose 151 mg/dL; Hemoglobin A1c % 6.9 %
[2022-03-24 10:38] LABS: Alanine Aminotransferase 20 U/L (0-40); Albumin Level 4.3 g/dL (3.5-5.0); Alkaline Phosphatase 63 U/L (39-117); Anion Gap 12 (12-20); Aspartate Amino Transferase 18 U/L (5-37); Blood Urea Nitrogen 18 mg/dL (9-16); Calcium 9.3 mg/dL (8.4-10.2); Carbon Dioxide 23 mmol/L (22-29); Chloride 106 mmol/L (96-108); Cholesterol 143 mg/dL; Estimated Glomerular Filt Rate > 60; Glucose Random 104 mg/dL (60-115); HDL Cholesterol 39 mg/dL; LDL Cholesterol Calculated 86 mg/dl; Potassium 4.2 mmol/L (3.3-5.1); Sodium 137 mmol/L (135-145); Total Protein 7.4 g/dL (6.5-8.0); Triglycerides 90 mg/dL
[2022-03-24 11:02] LABS: Prostate Specific Antigen 0.08 ng/mL (<0.05-4.0)
== END 2022-03-24 09:39 | disposition home or self-care (01) ==
LOC: HO.LAB 09:38
PROVIDERS: PCP Nurse Practitioner Family; Visit Provider Nurse Practitioner Family
DX: Z12.5 Encounter for screening for malignant neoplasm of prostate (principal); E11.9 Type 2 diabetes mellitus without complications; I10 Essential (primary) hypertension; E78.5 Hyperlipidemia, unspecified; Z79.4 Long term (current) use of insulin
CPT/HCPCS: 36415; 80053; 80061; 83036; 84153; 85027

== ENCOUNTER 2022-04-27 10:36 | Outpatient (REF) | payer BC, SELFPAY ==
[2022-04-27 13:52] LABS: Vitamin D 25-OH Total 31.6 ng/mL (>30)
[2022-04-29 01:06] LABS: C Peptide 2.38 ng/mL (0.80-3.85)
[2022-05-02 19:27] LABS: Glutamic acid decarboxylase Ab <5 IU/mL (<5)
== END 2022-04-27 10:37 | disposition home or self-care (01) ==
LOC: HO.LAB 10:36
PROVIDERS: PCP Nurse Practitioner Family; Visit Provider Internal Medicine Endocrinology, Diabetes & Metabolism
DX: R79.89 Other specified abnormal findings of blood chemistry (principal); E11.9 Type 2 diabetes mellitus without complications; Z79.4 Long term (current) use of insulin
CPT/HCPCS: 36415; 82306; 82947; 84681; 86341

== ENCOUNTER 2022-06-28 07:42 | Outpatient (REF) | payer BC, SELFPAY ==
[2022-06-28 08:24] LABS: Hematocrit 40.1 % (42.0-52.0); Mean Corpuscular HGB Conc 32.4 g/dl (31.0-36.0); Mean Corpuscular Hemoglobin 27.4 pg (27.0-33.0); Mean Corpuscular Volume 84.6 fL (80.0-98.0); Mean Platelet Volume 10.1 fL (9.4-12.4); Platelet Count 250 X10*3/uL (160-400); Red Blood Count 4.74 X10*6/uL (4.60-5.80); Red Cell Distribution Width 14.1 % (11.0-16.0); White Blood Count 9.1 X10*3/uL (4.8-10.8)
[2022-06-28 08:29] LABS: Estimated Average Glucose 123 mg/dL; Hemoglobin A1c % 5.9 %
[2022-06-28 09:02] LABS: Alanine Aminotransferase 18 U/L (0-40); Albumin Level 4.2 g/dL (3.5-5.0); Alkaline Phosphatase 49 U/L (39-117); Anion Gap 15 (12-20); Aspartate Amino Transferase 18 U/L (5-37); Bilirubin Total 0.7 mg/dL (0.0-1.0); Blood Urea Nitrogen 17 mg/dL (9-16); Calcium 9.2 mg/dL (8.4-10.2); Carbon Dioxide 25 mmol/L (22-29); Chloride 102 mmol/L (96-108); Cholesterol 176 mg/dL; Estimated Glomerular Filt Rate 59; Glucose Random 113 mg/dL (60-115); HDL Cholesterol 44 mg/dL; LDL Cholesterol Calculated 111 mg/dl; Potassium 4.3 mmol/L (3.3-5.1); Sodium 138 mmol/L (135-145); Total Protein 7.1 g/dL (6.5-8.0); Triglycerides 108 mg/dL
[2022-06-28 09:24] LABS: Vitamin D 25-OH Total 31.2 ng/mL (>30)
== END 2022-06-28 07:43 | disposition home or self-care (01) ==
LOC: HO.LAB 07:42
PROVIDERS: PCP Nurse Practitioner Family; Visit Provider Nurse Practitioner Family
DX: E11.9 Type 2 diabetes mellitus without complications (principal); E78.5 Hyperlipidemia, unspecified; R79.89 Other specified abnormal findings of blood chemistry; Z79.4 Long term (current) use of insulin
CPT/HCPCS: 36415; 80053; 80061; 82306; 83036; 85027

== ENCOUNTER → 2022-08-23 07:56 | Outpatient (BNVA) | payer BC, SELFPAY | PROVIDERS: PCP Nurse Practitioner Family; Visit Provider Internal Medicine Endocrinology, Diabetes & Metabolism | DX: E11.9 Type 2 diabetes mellitus without complications (principal); N52.9 Male erectile dysfunction, unspecified; Z79.4 Long term (current) use of insulin | CPT/HCPCS: 82947 ==

== ENCOUNTER 2022-10-06 08:52 | Outpatient (REF) | payer BC, SELFPAY ==
[2022-10-06 09:31] LABS: Hematocrit 42.1 % (42.0-52.0); Hemoglobin 13.7 g/dl (14.0-18.0); Mean Corpuscular HGB Conc 32.5 g/dl (31.0-36.0); Mean Corpuscular Hemoglobin 27.6 pg (27.0-33.0); Mean Corpuscular Volume 84.7 fL (80.0-98.0); Mean Platelet Volume 9.7 fL (9.4-12.4); Platelet Count 326 X10*3/uL (160-400); Red Blood Count 4.97 X10*6/uL (4.60-5.80); Red Cell Distribution Width 13.4 % (11.0-16.0); White Blood Count 9.3 X10*3/uL (4.8-10.8)
[2022-10-06 09:49] LABS: Estimated Average Glucose 131 mg/dL; Hemoglobin A1c % 6.2 %
[2022-10-06 11:27] LABS: Alanine Aminotransferase 20 U/L (0-40); Albumin Level 4.2 g/dL (3.5-5.0); Alkaline Phosphatase 59 U/L (39-117); Anion Gap 14 (12-20); Aspartate Amino Transferase 18 U/L (5-37); Bilirubin Total 0.8 mg/dL (0.0-1.0); Blood Urea Nitrogen 16 mg/dL (9-16); Calcium 9.6 mg/dL (8.4-10.2); Carbon Dioxide 26 mmol/L (22-29); Chloride 103 mmol/L (96-108); Cholesterol 153 mg/dL; Estimated Glomerular Filt Rate 60; Glucose Random 106 mg/dL (60-115); HDL Cholesterol 36 mg/dL; Iron 66 mcg/dL (45-160); LDL Cholesterol Calculated 86 mg/dl; Percent Iron Saturation 23 % (15-50); Potassium 3.9 mmol/L (3.3-5.1); Sodium 139 mmol/L (135-145); Total Iron Binding Capacity 282 mcg/dL (228-428); Total Protein 7.4 g/dL (6.5-8.0); Triglycerides 158 mg/dL; Unsaturated Iron Binding 216 ug/dL
== END 2022-10-06 08:53 | disposition home or self-care (01) ==
LOC: HO.LAB 08:52
PROVIDERS: PCP Nurse Practitioner Family; Visit Provider Nurse Practitioner Family
DX: E11.9 Type 2 diabetes mellitus without complications (principal); D64.9 Anemia, unspecified; E78.5 Hyperlipidemia, unspecified; Z79.4 Long term (current) use of insulin
CPT/HCPCS: 36415; 80053; 80061; 83036; 83540; 85027

== ENCOUNTER 2022-10-12 10:05 | Outpatient (REF) | payer BC, SELFPAY ==
--- NOTE | 2022-10-12 10:09 | ECG_ITS ---
Test Reason : preop Blood Pressure : / mmHG Vent. Rate : 064 BPM Atrial Rate : 064 BPM P-R Int : 164 ms QRS Dur : 096 ms QT Int : 416 ms P-R-T Axes : 046 086 086 degrees QTc Int : 429 ms Normal sinus rhythm Nonspecific T wave abnormality Abnormal ECG When compared with ECG of 02-MAR-2022 10:47, No significant change was found Referred By: Zhanna Baez Electronically Signed By:John Aguiar
[2022-10-12 10:58] LABS: Prothrombin Time 11.9 SEC (10.0-13.1)
[2022-10-12 11:54] LABS: TSH reflex Free T4 1.09 uIU/mL (0.32-4.0)
== END 2022-10-12 10:06 | disposition home or self-care (01) ==
LOC: HO.LAB 10:05
PROVIDERS: PCP Nurse Practitioner Family; Visit Provider Nurse Practitioner Family
DX: Z01.818 Encounter for other preprocedural examination (principal)
CPT/HCPCS: 36415; 84443; 85610; 93005

== ENCOUNTER 2022-11-22 12:21 | Day surgery (SDC) | payer BC, SELFPAY ==
[2022-11-17 14:58] VITALS: BMI 29.5
--- NOTE | 2022-11-22 | ECG_ITS ---
Test Reason : preop Blood Pressure : / mmHG Vent. Rate : 070 BPM Atrial Rate : 070 BPM P-R Int : 152 ms QRS Dur : 084 ms QT Int : 410 ms P-R-T Axes : 041 095 049 degrees QTc Int : 442 ms Normal sinus rhythm Rightward axis Borderline ECG When compared with ECG of 12-OCT-2022 10:12, Nonspecific T wave abnormality no longer evident in Lateral leads Referred By: Nicol Davis Electronically Signed By:TRENT LOPEZ
--- NOTE | 2022-11-22 12:37 | MHC.SHP ---
Pre-Procedural Eval Section A Date of Service: 11/22/22 Section B Chief Complaint: reflux disease,screening Relevant Family History (Specify if Yes): No Relevant Social History: Other (specify) (cocaine use) Present Medications: see Short Stay Collaborative assessment Medical History: Significant History (cva, cocaine use) History of Previous Operations: No relevant previous surgery Allergies: Allergies Allergy/AdvReac Type Severity Reaction Status Date / Time No Known Allergies Allergy Verified 10/12/22 09:39 Review of Systems Sugical H&P ROS: Negative: Constitution, Cardiovascular, Respiratory, Neurological, Psychiatric, Hem-Onc, Allergic/Immunologic, Gastrointestinal, Genitourinary, Musculoskeletal, Integumentary, Endocrine and Eyes/Ears/Nose/Throat Exam Surgical H&P Exam: Normal: HEENT, Normal: Heart, Normal: Lungs, Normal: Extremities, Normal: Abdomen, Normal: Skin and Normal: Neurological Plan Diagnosis/Plan: Unchanged I have reviewed the history and physical and performed a pertinent physical examination on my patient. No changes have occurred unless specified. Time Spent With Patient Time: Total time managing care of this patient today ____ minutes.
[2022-11-22 12:59] VITALS: BP 140/93; PULSE 73; RESP 20; TEMP 36.6; O2SAT 98
[2022-11-22 13:12] LABS: Glucose, Whole Blood 110 mg/dL (60-115)
[2022-11-22 13:30] LABS: Amphetamine Screen Urine Not Detected (Not Detect); Barbiturates, Urine Not Detected (Not Detect); Benzodiazepines Screen Urine Not Detected (Not Detect); Cannabinoid Screen Urine Not Detected (Not Detect); Cocaine Screen Urine POSITIVE (Not Detect); Fentanyl, urine Not Detected (Not Detect); Opiate Screen Urine Not Detected (Not Detect); Phencyclidine Screen Urine Not Detected (Not Detect)
--- NOTE | 2022-11-22 14:03 | HO.ANESPROP2 ---
HPI - Anesthesia Eval Consult details Narrative: 47 yo male patient for EGD, Colonoscopy PMF Active Problems Active Problems: All Active Problems (Updated 10/12/22 @ 10:00 by ALCIDES [place]) Overweight (BMI 25.0-29.9) (Acute) Preoperative clearance (Acute) Erectile dysfunction (Acute) Pain in both feet (Acute) Anemia (Acute) Yao's palsy (Acute) Adult general medical exam (Acute) Seasonal allergies (Acute) Screening for colon cancer (Acute) Screening for prostate cancer (Acute) Microalbuminuria (Acute) Low vitamin D level (Acute) Hospital discharge follow-up (Acute) Diabetes mellitus type 2, insulin dependent (Acute) Slurred speech (Acute) Screening for hypothyroidism (Acute) Hyperlipidemia (Acute) GERD (gastroesophageal reflux disease) (Acute) Cerebrovascular accident (Acute)- told some mild weakness left upper extremity but patient does not notice that much Hypertension (Acute) Diabetes mellitus (Acute) Positive cocaine. Admits last used last week Past Medical History Medical History Encounter to establish care Erectile dysfunction History of cocaine use Family History Family History Mother Asthma Father Diabetes Family/Other Substance use disorder Family history of problems with anesthesia: No Surgical History Surgical History No pertinent past surgical history History of Problems with Anesthesia: No Social History Social History Household Members: Spouse Housing: House Do you presently have visiting nurse or other home services: No Alcohol intake: current Alcohol intake frequency: holidays/special occasions only Alcohol type: beer and hard liquor Patient Tobacco Use Status: Current someday Tobacco user Tobacco use type: Cigarette e-Cigarette/Vaping Use: Never Used Second Hand Smoke Exposure: No Substance Use Type: Crack/Cocaine Substance Use Type Other:: used cocaine 2 weeks ago Are you DNR?: No Advance Directives: No Advance Directives Information Provided: Yes service: No Current occupational status: employed Current occupational exposures/hazards: No Cognitive needs: No Hearing needs: No Vision needs: Yes Meds Allergies Allergy/AdvReac Type Severity Reaction Status Date / Time No Known Allergies Allergy Verified 10/12/22 09:39 Home Medications Medication Instructions Recorded Confirmed Last Taken Type losartan 100 1 tab PO DAILY 03/31/22 11/22/22 11/22/22 History mg-hydrochlorothiazide 25 mg tablet insulin glargine 100 unit/mL (3 10 unit subcut QPM 10/12/22 11/22/22 11/20/22 History mL) subcutaneous pen (Basaglar KwikPen U-100 Insulin) Exam Exam Date and Time: November 22, 2022 1403 Height,Weight and Vital Signs: Height 5 ft 11 in Weight 96.162 kg Last Vital Signs Temp 98 F 11/22/22 12:59 Pulse 73 11/22/22 12:59 Resp 20 11/22/22 12:59 BP 140/93 H 11/22/22 12:59 Pulse Ox 98 11/22/22 12:59 O2 Del Method 11/22/22 12:59 Pertinent Lab Results Pertinent Lab Results: Laboratory Tests 11/22/22 11/22/22 12:37 13:08 POC Glucose 110 Urine Opiates Screen Not Detected Urine Fentanyl Screen Not Detected Ur Barbiturates Screen Not Detected Ur Phencyclidine Scrn Not Detected Ur Amphetamines Screen Not Detected U Benzodiazepines Scrn Not Detected Urine Cocaine Screen POSITIVE H U Marijuana (THC) Screen Not Detected Narrative Narrative: 12 lead EKG (11/22/22): NSR 70. Right axis deviation. No ST/T wave changes noted.Qt/ Qtc 410/ 442ms within normal limits Airway Mallampati Class: III TM Dist: >3cm Neck ROM: Full Loose/Missing/Broken Teeth: Yes (Top front tooth broken) Heart: RRR Lungs: CTAB Assessment and Plan Assessment Anesthesia Assessment: Anesthesia Plan Discussed and Chart Reviewed Final Anesthetic Review Family History of Problems with Anesthesia: No History of Problems with Anesthesia: No NPO: Yes ASA Class: III Final Preanesthetic Review: No Changes in Pt Med Stat, Meds/Allgs Chart Reviewed, Consent Obtained/Reviewed and Anes Risks/Benef Reviewed Patient Risk: Intermediate Procedure Risk: Low Assessment/Block/Sedation in SS: Assess/Block/Sedation-SS Anesthetic Plan Anesthetic Plan: MAC: Disposition: Standard PACU
--- NOTE | 2022-11-22 14:38 | W.PM.OPN ---
Operative Note Operative Note Date of Service: 11/22/22 Narrative: Operative Information Procedure Description: EGD, Colonoscopy Indication: reflux and screening Anesthesia: MAC FLEXIBLE TRANSORAL UPPER GASTROINTESTINAL ENDOSCOPY AND COLONOSCOPY PROCEDURE NOTE UPPER ENDOSCOPY Consent: Indications for the procedure and potential complications of bleeding, perforation, reaction to medications and missed diagnosis were discussed with the patient and informed consent was obtained. Instrument: Olympus GIF H 190 J mid size upper endoscope Monitoring: Vital signs and clinical assessment, continuous EKG monitoring, Pulse oximetry, Carbon Dioxide monitoring and blood pressure monitoring were done throughout the procedure. Procedure: The patient was placed in the left lateral decubitis position and pre-procedure medications were administered and a bite block was placed. The endoscope was inserted into the mouth and advanced under direct vision to the third part of duodenum. A careful inspection was made as the upper endoscope was withdrawn including a retroflexed examination of the proximal stomach; Findings and interventions are described below. Findings: Larynx:normal Esophagus: GE junction at 42 cm, diaphragm hiatus at 42 cm, normal mucosa -bx taken from GEJ and distal esophagus, small inlet patch noted, LES is incompetent Stomach: PAtchy erythema. Biopsies were obtained. Grade 3 flap valve on retroflexed examination of the cardia. Duodenum: Normal bulb and descending duodenum, Intervention: Biopsies as noted above COLONOSCOPY Instrument: Olympus variable stiffness Adult scope 190L Colonoscopy Monitoring: Vital signs and clinical assessment, continuous EKG monitoring, Pulse oximetry, Carbon Dioxide monitoring and blood pressure monitoring were done throughout the procedure. Colon withdrawal time was 8 minutes. Procedure: The patient was placed in the left lateral decubitis position and pre-procedure medications were administered. After a digital rectal examination of the ano-rectum, the video colonoscope was inserted into the rectum and advanced through the colon to the cecum/TI. The colonoscope was slowly withdrawn in a retrograde panoramic fashion and the colon mucosa was carefully examined including a retroflexed view of the rectum. Findings and interventions are described below. Procedure Difficulty: easy Findings: Terminal Ileum-normal Cecum:normal Ascending Colon: normal Transverse Colon -normal Descending Colon:normal Sigmoid Colon: mild to moderate diverticulosis Rectum: Retroflexion with small internal hemorrhoids, grade I Anorectum - normal Colon preparation: [place] Bowel Preparation Scale Right colon; 1-2 Transverse colon: 2 Left colon; 1-2 (0 = Unprepared colon segment with mucosa not seen due to solid stool that cannot be cleared. 1 = Portion of mucosa of the colon segment seen, but other areas of the colon segment not well seen due to staining, residual stool and/or opaque liquid. 2 = Minor amount of residual staining, small fragments of stool and/or opaque liquid, but mucosa of colon segment seen well. 3 = Entire mucosa of colon segment seen well with no residual staining, small fragments of stool or opaque liquid) Impression and Post Procedure Diagnosis: Endoscopy Findings: gastritis inlet patch Colonoscopy Findings: internal hemorrhoids diverticular disease Plan: Await Pathology results Repeat Colonoscopy in 3-4 years due to fair prep in some areas or earlier if clinically indicated High fiber diet leaflet avoid straining at stool, epsom salts and sitz bath, anusol supps or cream if H pylori pos then treat reflux precautions given lax LES vs surgical options or medical management, ARAT Above findings were reviewed with the patient and relevant handouts were provided if indicated.
[2022-11-22 15:00] VITALS: BP 135/76; PULSE 87; RESP 18; TEMP 36.1; O2SAT 97
[2022-11-22 15:15] VITALS: BP 109/71; PULSE 63; RESP 18; TEMP 36.1; O2SAT 99
[2022-11-22 15:30] VITALS: BP 126/82; PULSE 60; RESP 16; TEMP 36.1; O2SAT 100
--- NOTE | 2022-11-23 10:10 | HO.POSTANES ---
Post Anesthesia Evaluation Post Anesthesia Evaluation Anesthesia: Monitored Mental Status: Awake Pain Control: Satisfactory Nausea/Vomiting: None Hydration: Adequate Anesthesia-Related Issues: No Anes. Related Issues
== END 2022-11-22 15:45 | disposition home or self-care (01) ==
PROVIDERS: Anesthesiology; PCP Nurse Practitioner Family; Visit Provider Internal Medicine Gastroenterology
PROC: (CPT 45378; principal; 2022-11-22 12:40)
DX: Z12.11 Encounter for screening for malignant neoplasm of colon (principal); K57.30 Diverticulosis of large intestine without perforation or abscess without bleeding; K64.0 First degree hemorrhoids; K21.9 Gastro-esophageal reflux disease without esophagitis; K29.50 Unspecified chronic gastritis without bleeding; B96.81 Helicobacter pylori [H. pylori] as the cause of diseases classified elsewhere; K22.4 Dyskinesia of esophagus; Q39.8 Other congenital malformations of esophagus; K44.9 Diaphragmatic hernia without obstruction or gangrene; I10 Essential (primary) hypertension; E11.9 Type 2 diabetes mellitus without complications; Z79.4 Long term (current) use of insulin; Z79.899 Other long term (current) drug therapy; F14.11 Cocaine abuse, in remission; Z86.73 Personal history of transient ischemic attack (TIA), and cerebral infarction without residual deficits; Z87.891 Personal history of nicotine dependence
CPT/HCPCS: 45378; 43239; 80307; 82947; 88305; 88342; 93005

== ENCOUNTER → 2022-12-21 08:53 | Outpatient (BNVA) | payer BC, SELFPAY | PROVIDERS: PCP Nurse Practitioner Family; Visit Provider Internal Medicine Endocrinology, Diabetes & Metabolism | DX: E11.9 Type 2 diabetes mellitus without complications (principal); Z79.4 Long term (current) use of insulin | CPT/HCPCS: 82947 ==

== ENCOUNTER → 2024-03-31 11:35 | Outpatient (RCR) | payer BC, SELFPAY ==
--- NOTE | 2022-04-26 17:04 | MHC.SP.ADU ---
Referring provider: Zhanna MCGRATH Reason for Referral: Slurred speech Type of Treatment: 80322 Evaluation Speech Sound Production WITH Language Date of Plan of Treatment: 03/30/22 Onset of Symptoms/Illness: 01/16/22 Date Treatment Started: 03/30/22 Medical Diagnosis: Microalbuminuria, low vitamin D level, diabetes type 2 insulin dependent, hyperlipidemia, GERD, hypertension, hx CVA, hx cocaine use, seasonal allergies Primary Speech Language Diagnosis: R47.1 Dysarthria History Patient is a 46 year old male referred to us by his primary care physician, Zhanan MCGRATH of [facility] in [place] for evaluation of slurred speech. Patient?s medical history is significant for seasonal allergies, microalbuminuria, low vitamin D level, diabetes type 2, hyperlipidemia, GERD, hypertension, CVA, history of cocaine use. Per medical chart review, patient resides with his , Mrs. Stefanie Rivas, and family, and is independent with all care needs. 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 Patient has glasses to read, denies having any other assistive devices. He indicated his primary language as Vincentian, and also speaks Nigerien. Patient reports his highest level of education is completion of 8th grade. Upon chart review, patient was hospitalized here at [facility] from 01/16/22-01/18/22 for acute stroke and also found to have new onset diabetes. Patient presented in the ED on 01/16/22 with facial droop, dysarthria, and left side weakness. Patient was diagnosed with evolving cerebral infarct and was administered intravenous tPA. Patient?s symptoms dramatically improved within a couple hours. He was able to speak in full sentences, stated that he felt significantly better, and face and left sided weakness deficits were mostly resolved. Patient?s at that point still noticed ?a very minor speech abnormality.? -01/16/22 Head/neck CTA: ?Mild atheromatous disease in the cervical vasculature without significant stenosis or vessel occlusion. Mild to moderate stenoses in the intracranial right vertebral artery with a focal severe stenosis distal to the PICA origin. Moderate stenosis in the proximal basilar artery. Moderate to severe stenoses in the posterior cerebral arteries, particularly at the P1/P2 junction on the right side. Moderate stenosis in the supraclinoid left internal carotid artery. Multifocal mild to moderate stenoses in the MCA and INDIGO vasculature. Mild asymmetric soft tissue prominence along the tongue base on the left side and of the left pharyngeal wall; correlate with direct visual inspection in order to exclude an underlying lesion. No cervical adenopathy.? -01/17/22 Brain MRI: ?- There is an acute infarct extending from the right velasquez radiata into the posterior right putamen. No mass effect and no hemorrhagic transformation. - There is background moderate chronic microangiopathy.? Patient was accompanied by his for a speech evaluation at [facility] on 03/02/22. Upon arrival, patient presented with significant left side facial droop. Patient revealed that he had a mild left facial droop after his stroke in December, but this date his facial droop was much worse since the night before. We did not go forth with our speech evaluation at that time; subsequently CHAIN PULLER accompanied patient and his to the ED for further evaluation. In the ED, patient confirmed worsening of facial droop and denied having any other complaints. Facial droop involved mostly eye and forehead. There was no acute intracranial process seen on Head CT on 03/02. 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 On 03/30/22 patient returned to complete his speech evaluation. Patient stated that he has been ?feeling good,? but has some residual speech issues after his stroke in December. Patient reported that sometimes he has difficulty being understood by others and is motivated to participate in speech therapy with the hopes that he ?will be able to not stutter when having a conversation.? -03/02/22 Brain MRI: ?There has been expected evolution of a small amount of subacute to chronic lacunar infarct involving the right centrum semiovale. Scattered chronic small vessel ischemic changes are also visualized within the periventricular white matter. No evidence of acute territorial infarct or hemorrhage. ? Medical History: Other: Microalbuminuria, low vitamin D level, diabetes type 2 insulin dependent, hyperlipidemia, GERD, hypertension, hx CVA, hx cocaine use, seasonal allergies Recent Hospitalizations: Yes: 01/16/22-01/18/22 for CVA; 03/02/22 for [place] palsy Patient Orientation: Alert & Oriented x 4 Social History: Employment Status: Cafeteria Or Lunchroom Checker Employed Highest level of education obtained: Completed Grade School Current Living Situation: Patient reportedly lives with his and family. Assistive Devices in use: Glasses/Contacts Comment: Patient uses glasses for reading. Reported Speech, Language, Cognition difficulties: Speaking Comments: Main concern is slurred speech. Assessment Speech Production: Dysarthric Garbled Slow Slurred Clinical Impression: Impaired Observations: When describing the June Theft image, patient used complete sentences with appropriate syntax. Spontaneous speech was fluent, without any instances of word finding difficulty. Patient?s speech was mildly slow in rate and mildly slurred and garbled. Patient?s SMR?s and AMR?s were slow, but precise. Patient was administered the Tikofsky?s 50 Word Intelligibility Test. At the single word level patient was approximately 78% intelligible to this clinician, a trained and unfamiliar listener. Please interpret these results with caution, however, as patient is a bilingual speaker though he identified Vincentian as his primary language. Patient presented with mildly slurred, garbled speech quality. Patient stated he ?has a problem pronouncing words with the letter ?P.?? Patient reported that ?every friend asks [him] to slow down when speaking in order to better understand [him]?. Patient also feels that he stutters while speaking and would like to work on this in speech therapy Tests of Speech & Lang Adults: BDAE BNT Clinical Impression: Intact Observations: Patient was administered the Auditory Comprehension, Oral Expression, Reading and Writing subtests of the Bedford Diagnostic Aphasia Examination (BDAE). The BDAE is an assessment used to evaluate for receptive and expressive aphasia in individuals 16 years and older. His performance is summarized below: RECEPTIVE LANGUAGE: -Patient was instructed to identify spoken words by pointing to his response. Patient identified body parts on himself and line images from an array of 4 correctly in 16 out of 16 trials. Responses after a short time delay (>5 sec) were scored with 1/2 point while immediate responses (<5 sec) were scored with 1 point. Patient received a score of 16/16 on this portion. -Patient followed multistep and complex directions in 3 out of 3 trials. Patient was presented with a verbal direction. Each element of the direction carried out was scored with 1 point. Patient received a score of 10 out of 10 on this task. -Patient correctly answered yes/no questions about ideational material in 4 out of 4 trials and about short stories read aloud for him in 8 out of 8 trials. Questions were presented in pairs (6 pairs), each pair consisting of a yes-item and a no-item. In order to gain 1 point, patient was to answer both questions correctly. Patient received a score of 6/6. Patient?s receptive language abilities are deemed to be within functional limits based on observations made during this exam. EXPRESSIVE LANGUAGE: -Patient generated the days of the week and counted to 21 without difficulty, receiving a score of 4/4. -Patient repeated single words in 5 out of 5 trials and complete sentences in 2 out of 2 trials. -Patient responded appropriately to responsive naming questions (i.e. ?What do you use to shave??) in 5 out of 5 trials. Items immediately named were scored as 2 points and items named after a short time delay (>5 sec) were scored as 1 point. Patient immediately named all items, receiving a score of 10/10. -Patient correctly named ?special categories,? which included letters, numbers, and colors in 12 out of 12 trials, receiving a score 12/12. Patient completed the Bedford Naming Test (BNT) short form. He was presented with images, which he was instructed to name in a confrontation naming task. Patient correctly named 13 out of 15 images after a short time delay without any cuing. For two images presented, patient stated, ?I don?t know that one,? but was able to name them when provided with semantic and phonemic cues. No impairments noted in patient?s automatic speech, repetition of single words and complete sentences, responsive naming ability. Patient named most, but not all items on the BNT Short Form. Recommend continued monitoring of word finding ability with administration of the full BNT to further assess confrontation naming skills. READING: -Patient was able to match letters across cases and scripts, demonstrating basic symbol recognition, receiving a score of 4/4 on this task. -Patient was able to match numbers to fingers and dot patterns, receiving a score of 4/4 on this task. -Patient matched pictures to written words as an assessment of word identification. Patient received a score of 3/4 on this task. Patient matched an image depicting ?weight? with ?pounds.? -Patient read aloud single words without difficulty. Patient read aloud single words within 0-3 seconds, demonstrating basic oral word reading- 15/15 score -Patient read aloud sentences correctly in 5 out of 5 trials. Patient answered comprehension questions correctly after a short time delay- 3/3 correct -Patient read aloud sentences and paragraphs and selected the completion from a choice of 4 without assistance- 4/4 correct Patient reports that his reading skills are at baseline. WRITING: -Patient was able to print and sign his name -Patient wrote dictated letters and numbers without difficulty. -Patient was able to write numbers 1-10 -Patient wrote primer words (i.e. cat; run; go; dog). Noted spelling error when writing common irregular forms ?cough.? Patient received a scores of 4/4 when writing primer words, 2/2 when writing words targeting regular phonics, 2/3 when writing common irregular forms. Patient stated that he ?was always a bad speller.? -Well-formedness of letters scored as 14/14. Letters were all well-formed. Correctness of letter choice scored as 21/21. No evident impairments in motor facility of writing, scored as 14/14. Patient reports that his written language skills are at baseline, stating that he ?has always had difficulty with spelling.? *PATIENT PRESNTS WITH MILD DYSARTHRIA, residual from CVA in December 2021. Patient is recommended weekly, individualized speech therapy sessions once weekly x 12 weeks to work on improved articulation and speech clarity. Impressions and Recommendations Summary: Impact on Daily Function/Activity Limitations: Daily Activities: None Interpersonal Interactions: Mild Education: None Employment: None Community: None Prognosis for Improvement: Good Recommendation for Speech Therapy: Outpatient Speech Therapy Frequency/Duration: 1x weekly x 12 weeks Time to Reassess: 3 months Snf Goals: 1.) Patient will complete standardized assessment of cognitive linguistic skills over the course of 1-2 sessions with 100% completion. 2.) The patient will participate in conversation at 80% intelligibility given minimal verbal cues to utilize clear speech strategies in order to communicate thoughts, feelings, and needs. Short Term Goals: Goal # : 1.1. Patient will complete the Cognitive Linguistic Quick Test (CLQT) with 100% completion. 1.2. Patient will complete the Bedford Naming Test (BNT) Standard Form with 100% completion. Goal Status: New Goal Goal# : 2.1. Patient will use pacing cues to accurately produce 4-5 syllable words with 80% accuracy when provided with minimal verbal cues. Goal Status: New Goal Goal # : 2.2. Patient will produce sentences with 7+ words by placing pauses in appropriate places in 80% of opportunities given moderate verbal cues in order to increase ability to communicate wants and needs. 2.3. The patient will produce sentences with appropriate stress in 80% of opportunities given moderate verbal cues. Goal Status: New Goal Goal # : 2.4. Patient will produce sentences with 7 or more words at 80% intelligibility given moderate verbal cues to utilize clear speech strategies (i.e. overarticulation, emphasize final sounds, pausing, slowing rate of speech, etc). 2.5. Patient will use at least two compensatory strategies (over articulation/slow rate/writing sanderson word/elongation of the vowel/increased loudness/phrasing) to improve speech intelligibility while engaging in semi-structured conversation in 80% of opportunities when provided with minimal verbal cues. Goal Status: New Goal Recommended Referrals to be Discussed with Primary Care Provider: Neurology Patient Education: Completed: Yes Patient/Caregiver Education: Described Results of Evaluation Patient expressed understanding of evaluation Comments/Barriers to Learning: Can Machine Operator Clinican/Clinical Fellow: No Supervisory Statement: N/A Speech Language Pathologist: Mona Bradford M.A., CCC-CHAIN PULLER
== END | disposition home or self-care (01) ==
LOC: HO.SH 03-30 10:14
PROVIDERS: Visit Provider Nurse Practitioner Family
DX: I63.9 Cerebral infarction, unspecified (principal); R47.81 Slurred speech
CPT/HCPCS: 92523

== ENCOUNTER 2024-10-22 10:54 | Emergency (ER) | payer OTHER, SELFPAY ==
[2024-10-22 11:10] VITALS: BP 178/108; PULSE 99; RESP 18; TEMP 36.6; O2SAT 100; BMI 28.8
--- NOTE | 2024-10-22 11:18 | ED_ITS ---
HPI - General Adult General Chief complaint: General Medical Stated complaint: High Blood Pressure & High Sugar Sent by [facility] Time Seen by Provider: 10/22/24 15:11 Source: patient, RN notes reviewed and old records reviewed Mode of arrival: ambulatory Limitations: no limitations History of Present Illness ED Provider: PATRICA FLANNERY PA-C HPI narrative: 49-year-old male with past medical history significant for CVA, hypertension, type 2 diabetes presents to the ED today from urgent care for evaluation of elevated blood pressure and elevated blood sugar. Patient states he presented to urgent care today for evaluation of viral stomach bug (N/V/D). His symptoms have improved over the last few days but he wanted to get evaluated. On arrival, patient's blood pressure was noted to be quite elevated. His poc glucose was noted to be in the 300's. He was then sent to the emergency department for further evaluation. Patient states he has not taken any of his home medications in approximately 4 months. He admits he was laid off from his job and subsequently lost his health insurance. He has been unable to fill any of his prescriptions. He does note that he was recently started a new job and now has health insurance. He has an appointment with his PCP in a week. He is currently asymptomatic. Denies headache, dizziness, vision changes, chest pain, palpitations, sob, n/v. He does report history of CVA approximately 3 years ago without residual deficits. He states he was supposed to be on 81 mg aspirin daily however has not taken this either. He is not on anticoagulation. Related Data Home Medications ?Medication ?Instructions ?Recorded ?Confirmed insulin glargine 100 unit/mL (3 10 unit subcut QPM 10/12/22 12/08/22 mL) subcutaneous pen (Basaglar KwikPen U-100 Insulin) Previous Rx's ?Medication ?Instructions ?Recorded glucagon 3 mg/actuation nasal 3 mg intranasal ONCE #2 ea 04/27/22 spray (Baqsimi) metformin 500 mg tablet 1,000 mg (2 x 500 mg) PO BIDWMEAL 08/23/22 #120 tabs pioglitazone 15 mg tablet (Actos) 15 mg PO DAILY #30 tabs 08/23/22 atorvastatin 80 mg tablet 80 mg PO BEDTIME #90 tabs 11/15/22 bismuth subsalicylate 262 mg 2 tab PO QID 14 days #112 tabs 12/14/22 chewable tablet metronidazole 500 mg tablet 500 mg PO TID 14 days #42 tabs 12/14/22 tetracycline 500 mg capsule 500 mg PO Q6H 14 days #56 caps 12/14/22 blood-glucose sensor (Dexcom G7 #3 ea 12/21/22 Sensor device) tirzepatide 2.5 mg/0.5 mL 2.5 mg (0.5 mL) subcut QWEEK 4 12/21/22 subcutaneous pen injector weeks #2 mL (Mounbaltaro) cholecalciferol (vitamin D3) 50 50 mcg PO DAILY #90 tabs 03/07/23 mcg (2,000 unit) tablet losartan 100 1 tab PO DAILY #90 tabs 04/10/23 mg-hydrochlorothiazide 25 mg tablet sildenafil 100 mg tablet 100 mg PO DAILY PRN sexual 04/25/23 activity #7 tabs insulin aspart U-100 100 unit/mL 6 unit (0.06 mL) subcut TID #15 mL 07/18/23 (3 mL) subcutaneous pen aspirin 81 mg tablet,delayed 81 mg PO BEDTIME #90 tabs 08/07/23 release omeprazole 20 mg capsule,delayed 20 mg PO BID 30 days #60 caps 08/07/23 release insulin aspart U-100 100 unit/mL 6 unit (0.06 mL) subcut TID #15 mL 10/22/24 (3 mL) subcutaneous pen insulin glargine 100 unit/mL 10 unit (0.1 mL) subcut QPM #10 mL 10/22/24 subcutaneous solution (Lantus U-100 Insulin) losartan 100 1 tab PO DAILY 2 months #60 tabs 10/22/24 mg-hydrochlorothiazide 25 mg tablet metformin 500 mg tablet 500 mg PO BIDWMEAL 2 months #120 10/22/24 tabs Allergies Allergy/AdvReac Type Severity Reaction Status Date / Time No Known Allergies Allergy Verified 10/22/24 11:14 Review of Systems 2 Review of Systems: Yes all other systems are reviewed and are negative [facility] Past Medical History Attestation statement: The following information was validated with the patient. Source: old records reviewed and nursing notes reviewed Medical History Erectile dysfunction Encounter to establish care History of cocaine use Surgical History History of esophagogastroduodenoscopy (EGD) Hx of colonoscopy No pertinent past surgical history Family History Family History Mother Asthma Father Diabetes Family/Other Substance use disorder Social History Social History Household Members: Spouse Housing: House Do you presently have visiting nurse or other home services: No Alcohol intake: current Alcohol intake frequency: 0-2 drinks per day Alcohol type: beer Patient Tobacco Use Status: Current someday Tobacco user Tobacco use type: Cigarette Smoked in Last 30 Days: No e-Cigarette/Vaping Use: Never Used Second Hand Smoke Exposure: No Substance Use Type: Crack/Cocaine Advance Directives: No Advance Directives Information Provided: Yes Do you have a plan to hurt others: No Plan service: No Current occupational status: employed Current occupational exposures/hazards: No Cognitive needs: No Hearing needs: No Vision needs: Yes Physical Exam ED Vital Signs: Vital Signs - 24 hr 10/22/24 11:10 10/22/24 15:07 10/22/24 15:09 Temperature 97.9 F 97.9 F Pulse Rate 99 Respiratory Rate 18 Blood Pressure 178/108 H 209/130 H 191/116 H Pulse Oximetry 100 100 Oxygen Delivery Method Room Air Room Air 10/22/24 16:43 10/22/24 17:09 Temperature 97.9 F 97.9 F Pulse Rate 76 76 Respiratory Rate 20 20 Blood Pressure 163/104 H Pulse Oximetry 100 100 Oxygen Delivery Method Room Air Room Air BMI result Body Mass Index 28.8 hypertensive to 209/130 General: Well appearing, in no acute distress. Skin: Warm, dry, intact. No rashes or lesions. Head: Normocephalic, atraumatic. EENT: Hearing is intact b/l. Conjunctiva clear. PERRLA. EOM intact. Moist mucous membranes.? Neck: Supple without LAD Cardiac: Chest wall symmetric. RRR Lungs: Normal respiratory effort without accessory muscle use. CTA bilaterally. No rales, rhonchi, or wheezes.? Abdomen: Soft, non-tender, non-distended. No rebound tenderness or guarding. Positive BS x4. Back: No midline spinous or paraspinal tenderness. No step off deformity. Ext: Upper and lower extremities atraumatic, without tenderness, deformity, swelling or erythema. Full ROM throughout Neuro: AOx3. Normal speech. Strength 5/5 intact throughout. No saddle anesthesia. Sensation intact to light touch. NV intact distally. normal finger to nose, heel to munoz. Ambulating with steady gait. Psych: Appropriate mood and affect. Responds appropriately to questions. Course Course Course Narrative: This is a rapid medical exam performed by Brooks Schwarz NP: Additional HPI, ROS, PE not included below will be deferred to primary provider. Patient is a 49y/o M presenting from urgent care for elevated blood glucose and elevated BP. states he recently had nausea, vomiting, diarrhea and has been unable to get his medications due to insurance issue. Plan: viral serology, labs, ua Reevaluation(s) Reevaluation #1: 1539 -- NIH 0. > CBC without leukocytosis or left shift. No anemia. H&H stable. Chemistry without acute electrolyte abnormality requiring intervention. No KIERRA. Random glucose 361 without eye on gap. Mildly elevated liver function with AST 72, ALT 76. Normal bili. Urine with glucose, negative for infection. As patient is asymptomatic, I do not feel as though CT head is warranted at this time. > I have reviewed patient's home medication. It appears he takes losartan 100/hydrochlorothiazide 25, NovoLog, Lantus and metformin. > discussed case w/ my attending dr. garcia. given patient has been noncompliant with medications and is asymptomatic, it is likely that he is around his baseline BP. plan to give patient dose of losartan/ hctz with re- evaluation although I do not expect blood pressure to completely normalize in one visit. he will need to follow up with PCP outpatient w/ BP log. > will provide 1L IVF and 5 units insulin for hyperglycemia. I do not have concern for DKA. 1645 -- BP improved to 160s/103. poc glucose improved to 260. will discharge patient home w/ script for home meds. he has an appointment w/ his PCP in 1 week. advised to keep a long of BPs. he states he has a BP cuff at home Patient has remained stable throughout ED visit today. Discussed worrisome signs and symptoms and when to return to the ED. All questions answered at this time. Patient is agreeable with disposition and stable for discharge. Medications Administered Discontinued Medications Generic Name Dose Route Start Last Admin Trade Name Warner PRN Reason Stop Dose Admin Hydrochlorothiazide 25 mg 10/22/24 15:30 10/22/24 15:38 Hydrochlorothiazide 25 Mg Tablet PO 25 mg DAILY AKHIL Administration Protocol Sodium Chloride 1,000 mls @ 999 mls/hr 10/22/24 15:30 10/22/24 16:57 Ns IV 10/22/24 16:30 Infused .Q1H1M AKHIL Infusion Insulin Human Regular 2.5 unit 10/22/24 15:55 10/22/24 16:00 Insulin Regular, Human 100 Unit/Ml 10 Ml Vial IVPUSH 10/22/24 15:56 2.5 unit ONCE ONE Administration Insulin Human Regular 2.5 unit 10/22/24 16:50 10/22/24 16:59 Insulin Regular, Human 100 Unit/Ml 10 Ml Vial IVPUSH 10/22/24 16:51 Not Given ONCE ONE Losartan Potassium 100 mg 10/22/24 15:30 10/22/24 15:38 Losartan Potassium 50 Mg Tablet PO 100 mg DAILY AKHIL Administration Protocol Medical Decision Making Medical Decision Making [facility] Narrative: 49-year-old male with past medical history significant for CVA, hypertension, type 2 diabetes presents to the ED today from urgent care for evaluation of elevated blood pressure and elevated blood sugar. Hypertensive. virals otherwise wnl. he is quite well appearing, lying comfortably on the exam bed. physical exam benign. exam is nonfocal. NIH 0. Differential diagnosis includes anemia, electrolyte abnormality, dehydration, viral gastroenteritis, COVID/flu, hypertensive urgency, hypertensive emergency, hyperglycemia, DKA, hyperosmolar hyperglycemia. Unlikely CVA/TIA, ICH, other intracranial bleed. Plan for basic labs, ekg, viral serology, re-evaluation. Differential Diagnosis Differential Diagnoses: The differential diagnosis associated with the presentation includes As above Admission/Observation Not indicated Lab Data [facility] Lab Attestation statement: I reviewed the patient's lab results. As above 10/22/24 11:34 10/22/24 11:34 Labs: Lab Results 10/22/24 10/22/24 10/22/24 Range/Units 11:34 11:40 15:41 WBC 5.4 (4.8-10.8) X10*3/uL RBC 5.54 (4.60-5.80) X10*6/uL Hgb 15.8 (14.0-18.0) g/dl Hct 47.3 (42.0-52.0) % MCV 85.4 (80.0-98.0) fL MCH 28.5 (27.0-33.0) pg MCHC 33.4 (31.0-36.0) g/dl RDW 13.2 (11.0-16.0) % Plt Count 213 D (160-400) X10*3/uL MPV 10.1 (9.4-12.4) fL Immature Gran % (Auto) 0.6 H (0.0-0.4) % Neut % (Auto) 64.8 (45-73) % Lymph % (Auto) 21.0 (20-40) % [place] % (Auto) 11.6 H (2-11) % Eos % (Auto) 1.8 (0-4) % Baso % (Auto) 0.2 (0-2) % Lymph # (Auto) 1.1 L (1.2-4.9) X10*3/uL [place] # (Auto) 0.6 (0.1-1.2) X10*3/uL Eos # (Auto) 0.1 (0.0-0.4) X10*3/uL Baso # (Auto) 0.0 (0.0-0.2) X10*3/uL Abs Immat Gran (auto) 0.03 (0.00-0.03) X10*3/uL Absolute Neuts (auto) 3.5 (2.0-8.3) x10*3/uL Absolute Nucleated RBC 0.000 (0.0-0.012) X10*3/uL Nucleated RBC % (auto) 0.0 (0.0-0.2) /100WBC Sodium 135 (135-145) mmol/L Potassium 3.6 (3.3-5.1) mmol/L Chloride 101 (96-108) mmol/L Carbon Dioxide 26 (22-29) mmol/L Anion Gap 12 (12-20) BUN 10 (9-16) mg/dL Creatinine 1.27 (0.5-1.4) mg/dL Estim Creat Clear Calc 80.4 Estimated GFR 60 POC Glucose 259 H (60-115) mg/dL Random Glucose 361 H* (60-115) mg/dL Calcium 9.6 (8.4-10.2) mg/dL Magnesium 1.9 (1.6-2.6) mg/dL Total Bilirubin 0.7 (0.0-1.0) mg/dL AST 72 H (5-37) U/L ALT 76 H (0-40) U/L Alkaline Phosphatase 88 (39-117) U/L Total Protein 8.0 (6.5-8.0) g/dL Albumin 4.1 (3.5-5.0) g/dL Urine Color Yellow Urine Appearance Clear Urine pH 6.0 (5.0-9.0) Ur Specific [place] >= 1.030 H (1.005-1.025) Urine Protein 100 (2+) H (Neg-Trace) mg/dL Urine Glucose (UA) >=1000 H (Negative) mg/dL Urine Ketones 15 (Negative) mg/dL Urine Blood Negative (Negative) Urine Nitrite Negative (Negative) Ur Leukocyte Esterase Negative (Negative) Urine RBC 0-2 (0-2) /HPF Urine WBC 0-5 (0-5) /HPF Ur Squamous Epith Cells 0-2 (0-2) /HPF Urine Bacteria None Seen (None Seen) Hyaline Casts 0-2 (0-2) /LPF Influenza Type A (PCR) NEGATIVE (Negative) Influenza Type B (PCR) NEGATIVE (Negative) RSV RNA Qual (PCR) NEGATIVE (Negative) SARS-CoV-2 RNA (RT-PCR) NEGATIVE (Negative) 10/22/24 Range/Units 16:38 WBC (4.8-10.8) X10*3/uL RBC (4.60-5.80) X10*6/uL Hgb (14.0-18.0) g/dl Hct (42.0-52.0) % MCV (80.0-98.0) fL MCH (27.0-33.0) pg MCHC (31.0-36.0) g/dl RDW (11.0-16.0) % Plt Count (160-400) X10*3/uL MPV (9.4-12.4) fL Immature Gran % (Auto) (0.0-0.4) % Neut % (Auto) (45-73) % Lymph % (Auto) (20-40) % [place] % (Auto) (2-11) % Eos % (Auto) (0-4) % Baso % (Auto) (0-2) % Lymph # (Auto) (1.2-4.9) X10*3/uL [place] # (Auto) (0.1-1.2) X10*3/uL Eos # (Auto) (0.0-0.4) X10*3/uL Baso # (Auto) (0.0-0.2) X10*3/uL Abs Immat Gran (auto) (0.00-0.03) X10*3/uL Absolute Neuts (auto) (2.0-8.3) x10*3/uL Absolute Nucleated RBC (0.0-0.012) X10*3/uL Nucleated RBC % (auto) (0.0-0.2) /100WBC Sodium (135-145) mmol/L Potassium (3.3-5.1) mmol/L Chloride (96-108) mmol/L Carbon Dioxide (22-29) mmol/L Anion Gap (12-20) BUN (9-16) mg/dL Creatinine (0.5-1.4) mg/dL Estim Creat Clear Calc Estimated GFR POC Glucose 262 H (60-115) mg/dL Random Glucose (60-115) mg/dL Calcium (8.4-10.2) mg/dL Magnesium (1.6-2.6) mg/dL Total Bilirubin (0.0-1.0) mg/dL AST (5-37) U/L ALT (0-40) U/L Alkaline Phosphatase (39-117) U/L Total Protein (6.5-8.0) g/dL Albumin (3.5-5.0) g/dL Urine Color Urine Appearance Urine pH (5.0-9.0) Ur Specific [place] (1.005-1.025) Urine Protein (Neg-Trace) mg/dL Urine Glucose (UA) (Negative) mg/dL Urine Ketones (Negative) mg/dL Urine Blood (Negative) Urine Nitrite (Negative) Ur Leukocyte Esterase (Negative) Urine RBC (0-2) /HPF Urine WBC (0-5) /HPF Ur Squamous Epith Cells (0-2) /HPF Urine Bacteria (None Seen) Hyaline Casts (0-2) /LPF Influenza Type A (PCR) (Negative) Influenza Type B (PCR) (Negative) RSV RNA Qual (PCR) (Negative) SARS-CoV-2 RNA (RT-PCR) (Negative) Independent Interpretation I performed an independent interpretation of an: EKG Interpretation: EKG showing normal sinus rhythm with a rate of 85 beats per minute, QT 374, QTC 445, no acute ischemic changes or ST elevations External Record Review External record reviewed: Inpatient record Prescription Management Insulin, metformin, losartan/hydrochlorothiazide Chronic Conditions Patient?s care impacted by: Diabetes and Hypertension Social Determinants Patient?s care significantly limited by Social Determinants of Health including: Other Social Determinant of Health Critical Care Time Critical Care Time Critical Care Time: No Discharge Plan Discharge Clinical Impression: Hyperglycemia, Hypertension Patient Disposition: Home, Self-Care Instructions: Heart Healthy Diet (ED), DASH Eating Plan (ED), Diabetic Hyperglycemia (ED) Additional Instructions: You were evaluated in the ED today for elevated blood pressure and elevated blood sugar. I have sent your blood pressure and diabetes medications to your pharmacy. Take these as prescribed. As discussed, please keep a monitor of your blood pressures at home. I encourage you to purchase a blood presure cuff. These are available at any drug store. Measure your blood pressures on Sunday, Sunday, and Sunday. Keep your appointment with your primary care provider in November for follow up/ blood pressure check. I have also provided you with referrals to PCPs. call them to establish care. they will not call you. Please also monitor your blood sugar at home. Return with new or worsening symptoms. in the case of an emergency call 911. Prescriptions: New losartan-hydrochlorothiazide 100-25 mg tablet 1 tab PO DAILY 60 Days Qty: 60 0RF metformin 500 mg tablet 500 mg PO BIDWMEAL 60 Days Qty: 120 0RF insulin aspart U-100 100 unit/mL (3 mL) insulin pen 6 unit subcut TID Qty: 15 0RF insulin glargine [Lantus U-100 Insulin] 100 unit/mL solution 10 unit subcut QPM Qty: 10 0RF No Action atorvastatin 80 mg tablet 80 mg PO BEDTIME Qty: 90 1RF bismuth subsalicylate 262 mg tablet,chewable 2 tab PO QID 14 Days Qty: 112 0RF metronidazole 500 mg tablet 500 mg PO TID 14 Days Qty: 42 0RF tetracycline 500 mg capsule 500 mg PO Q6H 14 Days Qty: 56 0RF cholecalciferol (vitamin D3) 50 mcg (2,000 unit) tablet 50 mcg PO DAILY Qty: 90 3RF losartan-hydrochlorothiazide 100-25 mg tablet 1 tab PO DAILY Qty: 90 1RF sildenafil 100 mg tablet 100 mg PO DAILY PRN (Reason: sexual activity) Qty: 7 5RF insulin aspart U-100 100 unit/mL (3 mL) insulin pen 6 unit subcut TID Qty: 15 0RF omeprazole 20 mg capsule,delayed release(DR/EC) 20 mg PO BID 30 Days Qty: 60 0RF aspirin 81 mg tablet,delayed release (DR/EC) 81 mg PO BEDTIME Qty: 90 1RF Basaglar KwikPen U-100 Insulin 100 unit/mL (3 mL) insulin pen 10 unit subcut QPM Baqsimi 3 mg/actuation spray,non-aerosol 3 mg intranasal ONCE Qty: 2 5RF metformin 500 mg tablet 1,000 mg PO BIDWMEAL Qty: 120 5RF pioglitazone [Actos] 15 mg tablet 15 mg PO DAILY Qty: 30 5RF (DME) Dexcom G7 Sensor Device See Rx Instructions .Route Qty: 3 5RF Rx Instructions: As directed change every 10 days Mounjaro 2.5 mg/0.5 mL pen injector 2.5 mg subcut QWEEK 28 Days Qty: 2 0RF Referrals: [facility] Family Medicine [Provider Group] [facility] Primary Care[facility] [Provider Group] [facility] Primary CareMartha [Provider Group] Stand Alone Forms: Work/School Release Interventions: ED Discharge Assessment Last Done: 10/22/24 17:09 Discharge Date/Time: 10/22/24 17:09 Print Language: Paraguayan
--- NOTE | 2024-10-22 11:20 | ECG_ITS ---
Test Reason : HIGH BP Blood Pressure : */* mmHG Vent. Rate : 85 BPM Atrial Rate : 85 BPM P-R Int : 142 ms QRS Dur : 84 ms QT Int : 374 ms P-R-T Axes : 40 108 67 degrees QTcB Int : 445 ms Normal sinus rhythm Possible Left atrial enlargement Rightward axis Nonspecific ST and T wave abnormality Abnormal ECG When compared with ECG of 22-Nov-2022 13:52, No significant change was found Referred By: Sherita Schwarz Electronically Signed By: RHETT UP MD
[2024-10-22 11:40] LABS: MANUAL DIFF FLAG NO
[2024-10-22 11:41] LABS: Basophils Percent Auto 0.2 % (0-2); Eosinophils Absolute Auto 0.1 X10*3/uL (0.0-0.4); Eosinophils Percent Auto 1.8 % (0-4); Hematocrit 47.3 % (42.0-52.0); Hemoglobin 15.8 g/dl (14.0-18.0); Imm Gran Abs Auto 0.03 X10*3/uL (0.00-0.03); Imm Gran Pct Auto 0.6 % (0.0-0.4); Lymphocytes Absolute Auto 1.1 X10*3/uL (1.2-4.9); Mean Corpuscular HGB Conc 33.4 g/dl (31.0-36.0); Mean Corpuscular Hemoglobin 28.5 pg (27.0-33.0); Mean Corpuscular Volume 85.4 fL (80.0-98.0); Mean Platelet Volume 10.1 fL (9.4-12.4); Monocytes Absolute Auto 0.6 X10*3/uL (0.1-1.2); Monocytes Percent Auto 11.6 % (2-11); Neutrophils Absolute Auto 3.5 x10*3/uL (2.0-8.3); Neutrophils Percent Auto 64.8 % (45-73); Platelet Count 213 X10*3/uL (160-400); Red Blood Count 5.54 X10*6/uL (4.60-5.80); Red Cell Distribution Width 13.2 % (11.0-16.0); White Blood Count 5.4 X10*3/uL (4.8-10.8)
[2024-10-22 12:00] LABS: Alanine Aminotransferase 76 U/L (0-40); Albumin Level 4.1 g/dL (3.5-5.0); Alkaline Phosphatase 88 U/L (39-117); Anion Gap 12 (12-20); Aspartate Amino Transferase 72 U/L (5-37); Bilirubin Total 0.7 mg/dL (0.0-1.0); Blood Urea Nitrogen 10 mg/dL (9-16); Calcium 9.6 mg/dL (8.4-10.2); Carbon Dioxide 26 mmol/L (22-29); Chloride 101 mmol/L (96-108); Creatinine Clr Calc Pharmacy 80.4; Estimated Glomerular Filt Rate 60; Glucose Random 361 mg/dL (60-115); Magnesium 1.9 mg/dL (1.6-2.6); Potassium 3.6 mmol/L (3.3-5.1); Sodium 135 mmol/L (135-145)
[2024-10-22 12:10] LABS: Appearance Urine Clear; Color Urine Yellow; Glucose Urine UA >=1000 mg/dL (Negative); Leukocyte Esterase Urine Negative (Negative); Nitrite Urine Negative (Negative); Specific Gravity - Urine >= 1.030 (1.005-1.025); UMIC TRIGGER UACC YES; Urine Blood Negative (Negative); Urine Ketones 15 mg/dL (Negative); Urine Protein 100 (2+) mg/dL (Neg-Trace)
[2024-10-22 12:16] LABS: Bacteria Urine None Seen (None Seen); Hyaline Casts Urine 0-2 /LPF (0-2); RBC Urine 0-2 /HPF (0-2); Squamous Epithelial Cell Urine 0-2 /HPF (0-2); WBC Urine 0-5 /HPF (0-5)
[2024-10-22 12:25] LABS: Influenza A PCR NEGATIVE (Negative); Influenza B PCR NEGATIVE (Negative); Resp Syncy Virus RNA Qual PCR NEGATIVE (Negative); SARS COV2 PCR INHOUSE NEGATIVE (Negative)
--- OUTSIDE RECORDS SUMMARY | 2024-10-22 13:33 | XMS_ITS | Clinical Summary ---
Author Organization [facility] Facility Address [address] [address] Care Team Providers Care Visiting Teacher Name Role Phone Zhanna Baez ALCIDES Primary Care Provider [phone] Allergies No known active allergies Medications aspirin (ST OTIS) 81 MG EC tablet Take 81 mg by mouth 1 (one) time each day Active atorvastatin (LIPITOR) 80 MG tablet Take 80 mg by mouth every night Active insulin glargine (Basaglar KwikPen) 100 UNIT/ML injection Inject 20 Units under the skin every night Active Insulin Lispro, 1 Unit Dial, (HumaLOG KWIKPEN) 100 UNIT/ML solution pen-injector Inject 4 Units under the skin 3 times a day Active omeprazole (PriLOSEC) [address] capsule Take 20 mg by mouth every night Do not crush or chew. Active cetirizine (ZyrTEC) 10 MG tablet Take 10 mg by mouth 1 (one) time each day 02/23/2022 Active Cholecalciferol (Vitamin D3) 50 MCG (1999 UT) tablet Take 1 tablet by mouth 1 (one) time each day 02/14/2022 Active losartan-hydroCH LOROthiazide (HYZAAR) 100-25 MG per tablet Take 1 tablet by mouth 1 (one) time each day 03/28/2022 Active Active Problems Problem Noted Date Diagnosed Date Diabetes mellitus, not otherwise specified 04/24 Hypertension 04/24/2023 Ischemic stroke 04/24/2023 Cocaine use disorder, mild, not otherwise specif ied 04/24/2023 Proteinuria, not otherwise specified 04/24/2022 Family History Medical History Relation Comments Diabetes Father Asthma Mother Relation Status Comments Father Mother Social History Tobacco Use Types Packs/Day Years Used Date Smoking Tobacco: Former Cigarettes Smokeless Tobacco: Never Tobacco Cessation:Counseling Given: No Sex and Gender Information Value Date Recorded Sex Assigned at Not on file Legal Sex Male 1:43 PM EDT Gender Identity Not on file Sexual Orientation Not on file Last Filed Vital Signs Vital Sign Reading Time Taken Comments Blood Pressure 120/66 04/25/2022 9:18 AM EDT Pulse 66 04/25/2022 9:18 AM EDT Temperature - - Respiratory Rate - - Oxygen Saturation 98% 04/25/2022 9:18 AM EDT Inhaled Oxygen Concentration - - Weight 89.8 kg (198 lb) 04/25/2022 9:18 AM EDT Height - - Body Mass Index - - Plan of Treatment Health Maintenance Due Date Last Done Comments Hepatitis B Vaccine (1 of 3 - 19+ 3-dose series) 1992 Colorectal Cancer Screening: Annual FOBT 2022 Colorectal Cancer Screening: Colonoscopy 2022 Colorectal Cancer Screening: Sigmoidoscopy 2022 Diabetes: Hemoglobin A1C 04/24/2023 Diabetes: Ophthalmology Exam 04/24/2023 Diabetes: Pedal Pulse Checked 04/24/2023 Diabetes: Sensory Foot Exam 04/24/2023 Diabetes: Visual Foot Exam 04/24/2023 Influenza Vaccine (#1) 2024 Pneumococcal Vaccine: Pediat rics (0 to 5 Years) and At-Risk Patients (6 to 64 Years) Aged Out No longer eligible b ased on patient's age to complete this topic Insurance [facility] ([id number]) [facility] ([id number]) Care Teams Visiting Teacher Relationship Specialty Start Date End Date Zhanna Baez FNP [address] [place] [address] PCP - General 02/23/22
[2024-10-22 15:07] VITALS: BP 209/130; TEMP 36.6; O2SAT 100
[2024-10-22 15:09] VITALS: BP 191/116
[2024-10-22] MEDS: Losartan Potassium 50 MG TABLET 100 MG PO (15:38)
[2024-10-22] MEDS: 0.9 % Sodium Chloride 1,000 ML 999 ML IV (15:38)
[2024-10-22] MEDS: hydroCHLOROthiazide 25 MG TABLET PO (15:38)
--- NOTE | 2024-10-22 15:43 | PC.NURSE ---
BS [id number] PA aware stating to hold IV push insulin
[2024-10-22 15:46] LABS: Glucose, Whole Blood 259 mg/dL (60-115)
[2024-10-22] MEDS: Insulin Regular, Human 100 UNIT/ML 10 ML VIAL IVPUSH (16:00)
[2024-10-22 16:41] LABS: Glucose, Whole Blood 262 mg/dL (60-115)
[2024-10-22 16:43] VITALS: PULSE 76; RESP 20; TEMP 36.6; O2SAT 100
[2024-10-22 17:09] VITALS: BP 163/104; PULSE 76; RESP 20; TEMP 36.6; O2SAT 100
== END 2024-10-22 17:09 | disposition home or self-care (01) ==
PROVIDERS: Registered Nurse Emergency; Emergency Provider Emergency Medicine Emergency Medical Services
DX: E11.65 Type 2 diabetes mellitus with hyperglycemia (principal); I10 Essential (primary) hypertension; R11.2 Nausea with vomiting, unspecified; R11.0 Nausea; F17.210 Nicotine dependence, cigarettes, uncomplicated; Z86.73 Personal history of transient ischemic attack (TIA), and cerebral infarction without residual deficits; Z03.818 Encounter for observation for suspected exposure to other biological agents ruled out; Z79.899 Other long term (current) drug therapy; Z79.4 Long term (current) use of insulin
CPT/HCPCS: 0241U; 80053; 81001; 82947; 83735; 85025; 93005; 96361; 96374; 99284

== ENCOUNTER → 2024-10-22 11:20 | Outpatient (BNV) | payer OTHER, SELFPAY | PROVIDERS: Emergency Provider Emergency Medicine Emergency Medical Services; Visit Provider Internal Medicine Cardiovascular Disease | DX: I10 Essential (primary) hypertension (principal) | CPT/HCPCS: 93010 ==

== ENCOUNTER 2025-06-30 11:53 | Emergency (ER) | payer OTHER, SELFPAY ==
[2025-06-30 12:00] VITALS: BP 140/70; PULSE 108; RESP 18; TEMP 36.4; O2SAT 98; BMI 28.5
--- NOTE | 2025-06-30 12:00 | ED.GENADULT ---
HPI - General Adult General Chief complaint: General Medical Stated complaint: High blood sugar Related Data Home Medications ?Medication ?Instructions ?Recorded ?Confirmed insulin glargine 100 unit/mL (3 10 unit subcut QPM 10/12/22 12/08/22 mL) subcutaneous pen (Basaglar KwikPen U-100 Insulin) Previous Rx's ?Medication ?Instructions ?Recorded glucagon 3 mg/actuation nasal 3 mg intranasal ONCE #2 ea 04/27/22 spray (Baqsimi) metformin 500 mg tablet 1,000 mg (2 x 500 mg) PO BIDWMEAL 08/23/22 #120 tabs pioglitazone 15 mg tablet (Actos) 15 mg PO DAILY #30 tabs 08/23/22 atorvastatin 80 mg tablet 80 mg PO BEDTIME #90 tabs 11/15/22 bismuth subsalicylate 262 mg 2 tab PO QID 14 days #112 tabs 12/14/22 chewable tablet metronidazole 500 mg tablet 500 mg PO TID 14 days #42 tabs 12/14/22 tetracycline 500 mg capsule 500 mg PO Q6H 14 days #56 caps 12/14/22 blood-glucose sensor (Dexcom G7 #3 ea 12/21/22 Sensor device) tirzepatide 2.5 mg/0.5 mL 2.5 mg (0.5 mL) subcut QWEEK 4 12/21/22 subcutaneous pen injector weeks #2 mL (Millicent) cholecalciferol (vitamin D3) 50 50 mcg PO DAILY #90 tabs 03/07/23 mcg (2,000 unit) tablet losartan 100 1 tab PO DAILY #90 tabs 04/10/23 mg-hydrochlorothiazide 25 mg tablet sildenafil 100 mg tablet 100 mg PO DAILY PRN sexual 04/25/23 activity #7 tabs insulin aspart U-100 100 unit/mL 6 unit (0.06 mL) subcut TID #15 mL 07/18/23 (3 mL) subcutaneous pen aspirin 81 mg tablet,delayed 81 mg PO BEDTIME #90 tabs 08/07/23 release omeprazole 20 mg capsule,delayed 20 mg PO BID 30 days #60 caps 08/07/23 release insulin aspart U-100 100 unit/mL 6 unit (0.06 mL) subcut TID #15 mL 10/22/24 (3 mL) subcutaneous pen insulin glargine 100 unit/mL 10 unit (0.1 mL) subcut QPM #10 mL 10/22/24 subcutaneous solution (Lantus U-100 Insulin) losartan 100 1 tab PO DAILY 2 months #60 tabs 10/22/24 mg-hydrochlorothiazide 25 mg tablet metformin 500 mg tablet 500 mg PO BIDWMEAL 2 months #120 10/22/24 tabs Allergies Allergy/AdvReac Type Severity Reaction Status Date / Time No Known Allergies Allergy Verified 06/30/25 12:02 [facility] Past Medical History Medical History Erectile dysfunction Encounter to establish care History of cocaine use Surgical History History of esophagogastroduodenoscopy (EGD) Hx of colonoscopy No pertinent past surgical history Family History Family History Mother Asthma Father Diabetes Family/Other Substance use disorder Social History Social History Household Members: Spouse Housing: House Do you presently have visiting nurse or other home services: No Alcohol intake: current Alcohol intake frequency: 0-2 drinks per day Alcohol type: beer Patient Tobacco Use Status: Current someday Tobacco user Tobacco use type: Cigarette e-Cigarette/Vaping Use: Never Used Second Hand Smoke Exposure: No Substance Use Type: Crack/Cocaine Advance Directives: No Advance Directives Information Provided: Yes service: No Current occupational status: employed Current occupational exposures/hazards: No Cognitive needs: No Hearing needs: No Vision needs: Yes Physical Exam ED Vital Signs: BMI result Body Mass Index 28.5 Course Course Course Narrative: This is an RME: Additional HPI, ROS, PE not included below will be deferred to primary provider. RME assessment and note performed by: Bettina Miller PA-C 49-year-old male with past medical history significant for CVA, hypertension, type 2 diabetes on insulin, who presents to the ER with a complaint of hyperglycemia. Stopped metformin as it was giving him too much diarrhea. Does endorse some dizziness. Pt tachycardic, otherwise well appearing. Plan: Labs, EKG Reevaluation(s) Reevaluation #1: Patient left without completing treatment. Medical Decision Making Lab Data 06/30/25 12:23 06/30/25 12:23 Labs: Lab Results 06/30/25 06/30/25 06/30/25 Range/Units 12:23 12:30 12:32 WBC 8.9 (4.8-10.8) X10*3/uL RBC 5.48 (4.60-5.80) X10*6/uL Hgb 16.0 (14.0-18.0) g/dl Hct 45.3 (42.0-52.0) % MCV 82.7 (80.0-98.0) fL MCH 29.2 (27.0-33.0) pg MCHC 35.3 (31.0-36.0) g/dl RDW 13.1 (11.0-16.0) % Plt Count 256 (160-400) X10*3/uL MPV 10.2 (9.4-12.4) fL Immature Gran % (Auto) 0.6 H (0.0-0.4) % Neut % (Auto) 63.0 (45-73) % Lymph % (Auto) 24.4 (20-40) % [place] % (Auto) 9.2 (2-11) % Eos % (Auto) 2.2 (0-4) % Baso % (Auto) 0.6 (0-2) % Lymph # (Auto) 2.2 (1.2-4.9) X10*3/uL [place] # (Auto) 0.8 (0.1-1.2) X10*3/uL Eos # (Auto) 0.2 (0.0-0.4) X10*3/uL Baso # (Auto) 0.1 (0.0-0.2) X10*3/uL Abs Immat Gran (auto) 0.05 H (0.00-0.03) X10*3/uL Absolute Neuts (auto) 5.6 (2.0-8.3) x10*3/uL Absolute Nucleated RBC 0.000 (0.0-0.012) X10*3/uL Nucleated RBC % (auto) 0.0 (0.0-0.2) /100WBC VBG pH 7.42 (7.32-7.43) VBG pCO2 25 mmHg VBG pO2 62 mmHg VBG HCO3 17 L (22-26) mmol/L VBG O2 Saturation 88.0 % VBG Base Excess -5.2 mmol/L Sodium 132 L (135-145) mmol/L Potassium 3.5 (3.3-5.1) mmol/L Chloride 99 (96-108) mmol/L Carbon Dioxide 22 (22-29) mmol/L Anion Gap 15 (12-20) BUN 19 H (9-16) mg/dL Creatinine 1.61 H (0.5-1.4) mg/dL Estim Creat Clear Calc 63.1 Estimated GFR 45 POC Glucose 287 H (60-115) mg/dL Random Glucose 308 H (60-115) mg/dL Calcium 9.3 (8.4-10.2) mg/dL Magnesium 1.8 (1.6-2.6) mg/dL Total Bilirubin 1.2 H (0.0-1.0) mg/dL Direct Bilirubin 0.4 (0.0-0.5) mg/dL AST 91 H (5-37) U/L ALT 119 H (0-40) U/L Alkaline Phosphatase 79 (39-117) U/L Troponin I High Sens < 2.7 (<3.5-35.0) ng/L Total Protein 7.5 (6.5-8.0) g/dL Albumin 4.2 (3.5-5.0) g/dL Beta-Hydroxybutyrate 1.15 H (0.02-0.27) mmol/L COVID-19 (JON) Negative (Negative) COVID-19 Clin Com See Note Influenza Type A (JEWEL) Negative (Negative) Influenza Type B (JEWEL) Negative (Negative) Influenza A & B Note See Note Discharge Plan Discharge Clinical Impression: Diagnosis unknown Patient Disposition: Left W/O Completing Treatment Prescriptions: No Action atorvastatin 80 mg tablet 80 mg PO BEDTIME Qty: 90 1RF bismuth subsalicylate 262 mg tablet,chewable 2 tab PO QID 14 Days Qty: 112 0RF metronidazole 500 mg tablet 500 mg PO TID 14 Days Qty: 42 0RF tetracycline 500 mg capsule 500 mg PO Q6H 14 Days Qty: 56 0RF cholecalciferol (vitamin D3) 50 mcg (2,000 unit) tablet 50 mcg PO DAILY Qty: 90 3RF losartan-hydrochlorothiazide 100-25 mg tablet 1 tab PO DAILY Qty: 90 1RF sildenafil 100 mg tablet 100 mg PO DAILY PRN (Reason: sexual activity) Qty: 7 5RF insulin aspart U-100 100 unit/mL (3 mL) insulin pen 6 unit subcut TID Qty: 15 0RF omeprazole 20 mg capsule,delayed release(DR/EC) 20 mg PO BID 30 Days Qty: 60 0RF aspirin 81 mg tablet,delayed release (DR/EC) 81 mg PO BEDTIME Qty: 90 1RF losartan-hydrochlorothiazide 100-25 mg tablet 1 tab PO DAILY 60 Days Qty: 60 0RF metformin 500 mg tablet 500 mg PO BIDWMEAL 60 Days Qty: 120 0RF insulin aspart U-100 100 unit/mL (3 mL) insulin pen 6 unit subcut TID Qty: 15 0RF insulin glargine [Lantus U-100 Insulin] 100 unit/mL solution 10 unit subcut QPM Qty: 10 0RF Basaglar KwikPen U-100 Insulin 100 unit/mL (3 mL) insulin pen 10 unit subcut QPM Baqsimi 3 mg/actuation spray,non-aerosol 3 mg intranasal ONCE Qty: 2 5RF metformin 500 mg tablet 1,000 mg PO BIDWMEAL Qty: 120 5RF pioglitazone [Actos] 15 mg tablet 15 mg PO DAILY Qty: 30 5RF (DME) Dexcom G7 Sensor Device See Rx Instructions .Route Qty: 3 5RF Rx Instructions: As directed change every 10 days Mounjaro 2.5 mg/0.5 mL pen injector 2.5 mg subcut QWEEK 28 Days Qty: 2 0RF Discharge Date/Time: 06/30/25 18:37
--- NOTE | 2025-06-30 12:02 | ECG_ITS ---
Test Reason : HYPERGLYCEMIA Blood Pressure : */* mmHG Vent. Rate : 101 BPM Atrial Rate : 101 BPM P-R Int : 152 ms QRS Dur : 90 ms QT Int : 366 ms P-R-T Axes : 45 115 46 degrees QTcB Int : 474 ms Sinus tachycardia Possible Left atrial enlargement Left posterior fascicular block Abnormal ECG When compared with ECG of 22-Oct-2024 11:29, Nonspecific T wave abnormality no longer evident in Anterior leads Referred By: Bettina Miller Electronically Signed By: TRENT LOPEZ
[2025-06-30 12:31] LABS: MANUAL DIFF FLAG NO
[2025-06-30 12:34] LABS: Hematocrit 45.3 % (42.0-52.0); Hemoglobin 16.0 g/dl (14.0-18.0); Imm Gran Abs Auto 0.05 X10*3/uL (0.00-0.03); Imm Gran Pct Auto 0.6 % (0.0-0.4); Lymphocytes Absolute Auto 2.2 X10*3/uL (1.2-4.9); Mean Corpuscular HGB Conc 35.3 g/dl (31.0-36.0); Mean Corpuscular Hemoglobin 29.2 pg (27.0-33.0); Mean Corpuscular Volume 82.7 fL (80.0-98.0); NRBC Abs Auto 0.000 X10*3/uL (0.0-0.012); NRBC Pct Auto 0.0 /100WBC (0.0-0.2); Platelet Count 256 X10*3/uL (160-400); Red Blood Count 5.48 X10*6/uL (4.60-5.80); White Blood Count 8.9 X10*3/uL (4.8-10.8)
[2025-06-30 12:35] LABS: Venous Blood Gas Refer to POC result
[2025-06-30 12:36] LABS: VBG HCO3 17 mmol/L (22-26); VBG O2 % Saturation 88.0 %
[2025-06-30 12:50] LABS: COVID-19 Test Negative (Negative); IDNOW Serial# 08D9AD1C
[2025-06-30 12:51] LABS: Alanine Aminotransferase 119 U/L (0-40); Albumin Level 4.2 g/dL (3.5-5.0); Alkaline Phosphatase 79 U/L (39-117); Anion Gap 15 (12-20); Aspartate Amino Transferase 91 U/L (5-37); Blood Urea Nitrogen 19 mg/dL (9-16); Calcium 9.3 mg/dL (8.4-10.2); Carbon Dioxide 22 mmol/L (22-29); Chloride 99 mmol/L (96-108); Creatinine Clr Calc Pharmacy 63.1; Estimated Glomerular Filt Rate 45; Magnesium 1.8 mg/dL (1.6-2.6); Potassium 3.5 mmol/L (3.3-5.1); Sodium 132 mmol/L (135-145); Total Protein 7.5 g/dL (6.5-8.0)
[2025-06-30 12:53] LABS: IDNOW Serial# 58CA691E; Influenza B2 Negative (Negative)
[2025-06-30 12:56] LABS: Glucose, Whole Blood 287 mg/dL (60-115)
[2025-06-30 13:05] LABS: Troponin-I High Sensitivity < 2.7 ng/L (<3.5-35.0)
--- OUTSIDE RECORDS SUMMARY | 2025-06-30 13:38 | XMS_ITS | Clinical Summary ---
Author Organization [facility] Facility Address [address] [address] Care Team Providers Care Child Care Attendant Name Role Phone Zhanna Baez ALCIDES Primary Care Provider Allergies No known active allergies Medications aspirin [...] (1 of 3 - 19+ 3-dose series) 07/31 Colorectal Cancer Screening: Annual FOBT 2022 Colorectal Cancer Screening: Colonoscopy 2022 Colorectal Cancer Screening: Sigmoidoscopy 2022 Diabetes: Hemoglobin A1C 04/24/2023 Diabetes: Ophthalmology Exam 04/24/2023 Diabetes: Pedal Pulse Checked 04/24/2023 Diabetes: Sensory Foot Exam 04/24/2023 Diabetes: Visual Foot Exam 04/24/2023 Pneumococcal Vaccine: 50+ Years (1 of 1 - PCV) 023 Influenza Vaccine (#1) 2025 Insurance [facility] PPO Blue([id number]) [facility] MURIEL Giordano([id number]) Care Teams Child Care Attendant Relationship Specialty Start Date End Date Zhanna Baez FNP [address] [place] [address] PCP - General 02/23/22
== END 2025-06-30 18:37 | disposition left against medical advice (07) ==
PROVIDERS: Physician Assistant Medical; Emergency Provider Emergency Medicine
DX: E11.65 Type 2 diabetes mellitus with hyperglycemia (principal); I10 Essential (primary) hypertension; R94.31 Abnormal electrocardiogram [ECG] [EKG]; Z03.818 Encounter for observation for suspected exposure to other biological agents ruled out; Z53.29 Procedure and treatment not carried out because of patient's decision for other reasons; Z79.4 Long term (current) use of insulin; Z86.73 Personal history of transient ischemic attack (TIA), and cerebral infarction without residual deficits
CPT/HCPCS: 36415; 80048; 80076; 82010; 82803; 82947; 83735; 84484; 85025; 87502; 87635; 93005; 99283

== ENCOUNTER → 2025-06-30 12:02 | Outpatient (BNV) | payer OTHER, SELFPAY | PROVIDERS: Emergency Provider Emergency Medicine; Visit Provider Internal Medicine | DX: I44.5 Left posterior fascicular block (principal); R00.0 Tachycardia, unspecified | CPT/HCPCS: 93010 ==